=== PATIENT | female | born 1990 | race Two or more races ===

== ENCOUNTER 2021-09-05 14:39 | Outpatient (REF) | payer OTHER, SELFPAY ==
[2021-09-05 14:59] LABS: MANUAL DIFF FLAG NO
[2021-09-05 15:21] LABS: Basophils Absolute Auto 0.1 X10*3/uL (0.0-0.2); Basophils Percent Auto 0.7 % (0-2); Eosinophils Absolute Auto 0.2 X10*3/uL (0.0-0.4); Eosinophils Percent Auto 2.2 % (0-4); Hematocrit 35.2 % (37.0-47.0); Imm Gran Abs Auto 0.02 X10*3/uL (0.00-0.03); Imm Gran Pct Auto 0.3 % (0.0-0.4); Lymphocytes Absolute Auto 1.9 X10*3/uL (1.2-4.9); Lymphocytes Percent Auto 25.4 % (20-40); Mean Corpuscular HGB Conc 31.3 g/dl (31.0-35.0); Mean Corpuscular Hemoglobin 25.5 pg (27.0-33.0); Mean Corpuscular Volume 81.5 fL (80.0-98.0); Mean Platelet Volume 11.2 fL (9.4-12.3); Monocytes Absolute Auto 0.6 X10*3/uL (0.1-1.2); Monocytes Percent Auto 8.5 % (2-11); Neutrophils Absolute Auto 4.6 x10*3/uL (2.0-8.3); Neutrophils Percent Auto 62.9 % (45-73); Platelet Count 293 X10*3/uL (160-400); Red Blood Count 4.32 X10*6/uL (4.20-5.50); Red Cell Distribution Width 15.2 % (11.0-16.0); White Blood Count 7.3 X10*3/uL (4.8-10.8)
[2021-09-05 15:27] LABS: Anion Gap 11 (12-20); Blood Urea Nitrogen 11 mg/dL (9-16); Calcium 9.5 mg/dL (8.4-10.2); Carbon Dioxide 26 mmol/L (22-29); Chloride 105 mmol/L (96-108); Cholesterol 148 mg/dL; Estimated Glomerular Filt Rate > 60; Glucose Random 105 mg/dL (60-115); Sodium 138 mmol/L (135-145)
== END 2021-09-05 14:40 | disposition home or self-care (01) ==
LOC: HO.LAB 14:39
PROVIDERS: PCP Internal Medicine; Visit Provider Internal Medicine
DX: Z00.00 Encounter for general adult medical examination without abnormal findings (principal); K21.9 Gastro-esophageal reflux disease without esophagitis
CPT/HCPCS: 36415; 80048; 82465; 85025

== ENCOUNTER 2022-08-29 11:46 | Outpatient (REF) | payer OTHER, SELFPAY ==
[2022-08-29 13:34] LABS: MANUAL DIFF FLAG NO
[2022-08-29 13:40] LABS: Basophils Absolute Auto 0.1 X10*3/uL (0.0-0.2); Basophils Percent Auto 0.8 % (0-2); Eosinophils Absolute Auto 0.1 X10*3/uL (0.0-0.4); Eosinophils Percent Auto 1.7 % (0-4); Hemoglobin 11.4 g/dl (12.0-16.0); Imm Gran Abs Auto 0.02 X10*3/uL (0.00-0.03); Imm Gran Pct Auto 0.3 % (0.0-0.4); Lymphocytes Absolute Auto 1.7 X10*3/uL (1.2-4.9); Lymphocytes Percent Auto 28.3 % (20-40); Mean Corpuscular HGB Conc 31.7 g/dl (31.0-35.0); Mean Corpuscular Volume 82.2 fL (80.0-98.0); Mean Platelet Volume 12.3 fL (9.4-12.3); Monocytes Absolute Auto 0.6 X10*3/uL (0.1-1.2); Monocytes Percent Auto 10.6 % (2-11); Neutrophils Absolute Auto 3.5 x10*3/uL (2.0-8.3); Neutrophils Percent Auto 58.3 % (45-73); Platelet Count 284 X10*3/uL (160-400); Red Blood Count 4.38 X10*6/uL (4.20-5.50); Red Cell Distribution Width 15.3 % (11.0-16.0); White Blood Count 6.1 X10*3/uL (4.8-10.8)
[2022-08-29 14:01] LABS: Anion Gap 11 (12-20); Blood Urea Nitrogen 8 mg/dL (9-16); Calcium 9.7 mg/dL (8.4-10.2); Carbon Dioxide 27 mmol/L (22-29); Chloride 105 mmol/L (96-108); Cholesterol 140 mg/dL; Estimated Glomerular Filt Rate > 60; Glucose Random 89 mg/dL (60-115); Iron 45 mcg/dL (30-160); Percent Iron Saturation 11 % (15-50); Potassium 4.3 mmol/L (3.3-5.1); Sodium 139 mmol/L (135-145); Total Iron Binding Capacity 404 mcg/dL (228-428); Unsaturated Iron Binding 359 ug/dL
== END 2022-08-29 11:47 | disposition home or self-care (01) ==
LOC: HO.10HDL 11:46
PROVIDERS: Visit Provider Internal Medicine
DX: Z00.00 Encounter for general adult medical examination without abnormal findings (principal)
CPT/HCPCS: 36415; 80048; 82465; 83540; 85025

== ENCOUNTER 2023-01-01 09:31 | Outpatient (REF) | payer OTHER, SELFPAY ==
[2023-01-01 13:59] LABS: CT PCR NOT DETECTED (Not Detect.); NG PCR NOT DETECTED (Not Detect.)
[2023-01-02 10:36] LABS: BV Int Neg Control Negative (Negative); BV Int Pos Control Positive (Positive)
[2023-01-06 06:04] LABS: HPV mRNA E6/E7 rflx Not Detected (Not Detected)
== END 2023-01-01 09:32 | disposition home or self-care (01) ==
LOC: HO.LNP 09:31
PROVIDERS: PCP Internal Medicine; Visit Provider Advanced Practice Midwife
DX: Z30.432 Encounter for removal of intrauterine contraceptive device (principal)
CPT/HCPCS: 0353U; 58301; 87480; 87510; 87624; 87660; 88142

== ENCOUNTER 2023-08-17 13:26 | Outpatient (REF) | payer OTHER, SELFPAY ==
[2023-08-18 13:10] LABS: CT PCR NOT DETECTED (Not Detect.); NG PCR NOT DETECTED (Not Detect.)
[2023-08-18 13:32] LABS: BV Int Neg Control Negative (Negative); BV Int Pos Control Positive (Positive)
== END 2023-08-17 13:27 | disposition home or self-care (01) ==
LOC: HO.LNP 13:26
PROVIDERS: PCP Internal Medicine; Visit Provider Advanced Practice Midwife
DX: O20.9 Hemorrhage in early pregnancy, unspecified (principal)
CPT/HCPCS: 0353U; 87480; 87510; 87660; 99212

== ENCOUNTER 2023-08-17 13:26 | Outpatient (AMB) | payer OTHER, SELFPAY ==
--- NOTE | 2023-08-17 13:28 | MHC.OFFVIS ---
Intake Vital Signs 08/17/23 13:39 Height 5 ft 2 in Weight 160 lb BMI 29.3 BP 118/60 Intake Visit Reasons: Consult Intake Note: The patient agreed to use of a medical sales associate during this encounter. Scribed for DEBBIE Miranda by Kaylin Pettit medical sales associate, on 08/17/2023 at 1:45 pm EST Neurology Physician Assistant Required: No Information Interpreted: non-clinical & clinical Accompanied by: Spouse Allergies No Known Allergies Allergy (Verified 08/17/23 13:40) Patient : Yes HPI HPI Comments History of Present Illness Details She presents for missed menses. LMP?06/20/23.? Her menses are typically regular and monthly, had IUD removed in December. Took home HCG test, positive. This is her 3rd , 2 older girls at home. She is happy about the , planned. Taking PNV. Reports spotting last week after intimacy. Denies any pain. Denies any significant medical hx. Denies any previous complications. She is accompanied by her , Renato. [facility] Medical History Cervical cancer screening Social History Patient : Yes Female Reproductive History Menstrual Age of Menarche: 10 Review of Systems Const All systems reviewed & are unremarkable except as noted in HPI and below Physical Exam Vital Signs: Last Vital Signs BP 118/60 08/17/23 13:39 BMI result Body Mass Index 29.3 Const General: cooperative, no acute distress, well developed and alert External Female Exam: normal external appearance Speculum Exam - Vagina: normal appearance of the vagina Speculum Exam - Cervix: normal appearance of the cervix Bimanual exam- vagina & uterus: normal bimanual exam, uterine size normal, uterine shape normal and non-tender Bimanual Exam- Adnexa, other: normal adnexae and no masses Assessment & Plan Assessment & Plan (1) Missed menses: Code(s): N92.6 - Irregular menstruation, unspecified Plan: Urine HCG today, positive. Discussed EDC pending OB US. US ordered today.? Continue PNV. Stay well hydrated and eat small frequent healthy meals. Counseled on delivery and OB US at [facility]. Reviewed ectopic warnings and when to call for further evaluation. Encouraged patient to sign up for patient portal. Next appointment TBD pending US. She will contact the office with any questions or concerns. (2) Early stage of : Code(s): Z34.90 - Encounter for supervision of normal , unspecified, unspecified trimester (3) Bleeding in early : Code(s): O20.9 - Hemorrhage in early , unspecified Orders: Orders CT NG by PCR Today Z34.90 - Encounter for supervision of normal , unspecified, unspecified trimester Bacterial Vaginosis Panel Today Z34.90 - Encounter for supervision of normal , unspecified, unspecified trimester US OB limited Today N93.0 - Postcoital and contact bleeding, Z34.90 - Encounter for supervision of normal , unspecified, unspecified trimester Coding Level of Care Code Est Pt Level 4 (66265) Diagnoses Missed menses N92.6 Early stage of Z34.90 Bleeding in early O20.9
[2023-08-17 13:39] VITALS: BP 118/60; BMI 29.3
== END 2023-08-17 14:43 | disposition home or self-care (01) ==
PROVIDERS: PCP Internal Medicine; Visit Provider Advanced Practice Midwife
DX: N92.6 Irregular menstruation, unspecified (principal)
CPT/HCPCS: 99214

== ENCOUNTER 2023-08-28 15:10 | Outpatient (REF) | payer OTHER, SELFPAY ==
--- NOTE | ~2023-08-28 | US_ITS ---
EXAMINATION: US OBSTETRICAL ULTRASOUND CLINICAL INFORMATION: Encounter for supervision of normal Early , postcoital bleeding COMPARISON: None available. LMP: 06/20/2023. Gestational age by maternal dates is 9 weeks 6 days. Estimated date of delivery by maternal dates is 03/26/2024. TECHNIQUE: Transabdominal and transvaginal scanning were performed. FINDINGS: There is a single intrauterine gestational sac with visible yolk sac, embryo/fetus with movement and cardiac activity. There is no significant subchorionic hemorrhage or hematoma. HR: 192 beats per minute. CRL (crown rump length): 3.4 cm (10 weeks 3 days +/- 4 days). JOSH (estimated date of delivery): 03/22/2024 +/- 4 days. MATERNAL ADNEXA: The right maternal ovary measures 4.8 x 4.3 x 2.5 cm. A 4.2 x 2.9 x 2.3 cm simple cyst is seen in the right ovary. This is likely a benign functional cyst. The left maternal ovary measures 3.6 x 2.1 x 2.1 cm. The left ovary is normal in appearance. There is no free fluid within the cul-de-sac. US/US OB <= 14 weeks fetus IMPRESSION: 1. Single intrauterine gestation with ultrasound gestational age of 10 weeks 3 days +/- 4 days. 2. Estimated date of delivery is 03/22/2024 +/- 4 days. 3. heart rate is 192 bpm. Upper limits of normal is usually 170 bpm at the ninth week of gestation. After the ninth week of gestation, there is a gradual reduction in the heart rate that reaches a mean value of 150 bpm in the 13th week of gestation. 4. 4.2 cm simple cyst in the right ovary is likely a functional cyst.
== END 2023-08-28 15:11 | disposition home or self-care (01) ==
LOC: HO.HMGCX 15:10
PROVIDERS: PCP Internal Medicine; Visit Provider Advanced Practice Midwife
DX: Z34.91 Encounter for supervision of normal pregnancy, unspecified, first trimester (principal); Z3A.09 9 weeks gestation of pregnancy
CPT/HCPCS: 76801

== ENCOUNTER 2023-09-13 13:21 | Outpatient (AMB) | payer OTHER, SELFPAY ==
[2023-09-13 13:23] VITALS: BP 114/66; BMI 29.8
--- NOTE | 2023-09-13 13:23 | MHC.OFFVIS ---
Intake Vital Signs 09/13/23 13:23 Height 5 ft 2 in Weight 163 lb BMI 29.8 BP 114/66 Intake Visit Reasons: US follow up Director Reactor Projects: Director Reactor Projects Present Allergies No Known Allergies Allergy (Verified 09/13/23 13:23) Is last menstrual period known: Yes HPI US follow up HPI Details Patient is here today for her test results of her ultrasound for dating. She feels well eating without difficulty, taking her vitamins. She denies any vaginal bleeding. COUNTS INCLUDE 234 BEDS AT THE [facility] Medical History Cervical cancer screening Female Reproductive History Menstrual Age of Menarche: 10 Review of Systems ENT Reports no additional complaints Neuro Reports no additional complaints Psych Reports no additional complaints Endo Reports no additional complaints Physical Exam Vital Signs: Last Vital Signs BP 114/66 09/13/23 13:23 BMI result Body Mass Index 29.8 Results Reviewed Results Reviewed: [facility] [address] [place] [address] [place] [id number] Ultrasound Report Signed Patient: Brittni Davidson MR#: [id number] : 1990 Acct:[id number] Age/Sex: 33 / F ADM Date: 08/28/23 Loc: HO.HMGCX Attending Dr: Farnaz Barton CNM Ordering Physician: Farnaz Barton CNM Date of Service: 08/28/23 Procedure(s): US OB <= 14 weeks fetus Accession Number(s): [id number] cc: Liang Rodriguez MD; Farnaz Barton CNM~ EXAMINATION: US OBSTETRICAL ULTRASOUND CLINICAL INFORMATION: Encounter for supervision of normal Early , postcoital bleeding COMPARISON: None available. LMP: 06/20/2023. Gestational age by maternal dates is 9 weeks 6 days. Estimated date of delivery by maternal dates is 03/26/2024. TECHNIQUE: Transabdominal and transvaginal scanning were performed. FINDINGS: There is a single intrauterine gestational sac with visible yolk sac, embryo/fetus with movement and cardiac activity. There is no significant subchorionic hemorrhage or hematoma. HR: 192 beats per minute. CRL (crown rump length): 3.4 cm (10 weeks 3 days +/- 4 days). JOSH (estimated date of delivery): 03/22/2024 +/- 4 days. MATERNAL ADNEXA: The right maternal ovary measures 4.8 x 4.3 x 2.5 cm. A 4.2 x 2.9 x 2.3 cm simple cyst is seen in the right ovary. This is likely a benign functional cyst. The left maternal ovary measures 3.6 x 2.1 x 2.1 cm. The left ovary is normal in appearance. There is no free fluid within the cul-de-sac. US/US OB <= 14 weeks fetus IMPRESSION: 1. Single intrauterine gestation with ultrasound gestational age of 10 weeks 3 days +/- 4 days. 2. Estimated date of delivery is 03/22/2024 +/- 4 days. 3. heart rate is 192 bpm. Upper limits of normal is usually 170 bpm at the ninth week of gestation. After the ninth week of gestation, there is a gradual reduction in the heart rate that reaches a mean value of 150 bpm in the 13th week of gestation. 4. 4.2 cm simple cyst in the right ovary is likely a functional cyst. Dictated By: May Resendez MD Assessment & Plan Assessment & Plan (1) Encounter to discuss test results: Code(s): Z71.2 - Person consulting for explanation of examination or test findings Plan: Discussed ultrasound findings with the heart rate elevated to 192. Discussed variables of the heart rate in early gestation. Plan ultrasound follow-up to confirm viability. Return to the office after test results. Orders: Orders US OB follow up Today O36.8390 - Maternal care for abnormalities of the heart rate or rhythm, unspecified trimester, not applicable or unspecified Coding Level of Care Code Est Pt Level 3 (92694) Diagnoses Encounter to discuss test results Z71.2
== END 2023-09-13 13:47 | disposition home or self-care (01) ==
LOC: HO.HWS 13:21
PROVIDERS: PCP Internal Medicine; Visit Provider Advanced Practice Midwife
DX: Z71.2 Person consulting for explanation of examination or test findings (principal)
CPT/HCPCS: 99213

== ENCOUNTER → 2023-09-13 13:21 | Outpatient (BNVA) | payer OTHER, SELFPAY | PROVIDERS: PCP Internal Medicine; Visit Provider Advanced Practice Midwife | DX: O36.8310 Maternal care for abnormalities of the fetal heart rate or rhythm, first trimester, not applicable or unspecified (principal); O26.891 Other specified pregnancy related conditions, first trimester; N93.0 Postcoital and contact bleeding; O34.81 Maternal care for other abnormalities of pelvic organs, first trimester; N83.291 Other ovarian cyst, right side; Z3A.10 10 weeks gestation of pregnancy; Z71.2 Person consulting for explanation of examination or test findings | CPT/HCPCS: 99212 ==

== ENCOUNTER 2023-09-13 13:59 | Outpatient (REF) | payer OTHER, SELFPAY ==
--- NOTE | ~2023-09-13 | US_ITS ---
EXAMINATION: US OBSTETRICAL ULTRASOUND CLINICAL INFORMATION: Maternal care for abnormalities of the heart rate were rhythm COMPARISON: Ultrasound 08/28/2023 LMP: 06/20/2023. Gestational age by maternal dates is 12 weeks 1 day. Estimated date of delivery by maternal dates is 03/26/2024. TECHNIQUE: Transabdominal scanning was performed. FINDINGS: There is a single intrauterine gestational sac with an fetus demonstrating movement and cardiac activity. There is no significant subchorionic hemorrhage or hematoma. HR: 176 beats per minute. CRL (crown rump length): 6.25 cm (12 weeks 5 days +/- 4 days). JOSH (estimated date of delivery): 03/22/2024 +/- 4 days. MATERNAL ADNEXA: The ovaries are not well seen There is no significant maternal adnexal mass. No maternal pelvic ascites. US/US OB <= 14 weeks fetus IMPRESSION: 1. Single intrauterine gestation with ultrasound gestational age of 12 weeks 5 days +/- 4 days. 2. Estimated date of delivery is 03/22/2024 +/- 4 days. 3. No maternal adnexal mass or pelvic ascites. 4. Interval decrease in heart rate.
== END 2023-09-13 14:00 | disposition home or self-care (01) ==
LOC: HO.US 13:59
PROVIDERS: PCP Internal Medicine; Visit Provider Advanced Practice Midwife
DX: O36.8390 Maternal care for abnormalities of the fetal heart rate or rhythm, unspecified trimester, not applicable or unspecified (principal)
CPT/HCPCS: 76801

== ENCOUNTER 2023-10-01 13:54 | Outpatient (AMB) | payer OTHER, SELFPAY ==
[2023-10-01 13:59] VITALS: BMI 29.7
--- NOTE | 2023-10-01 13:59 | MHC.OFFVISPN ---
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 Maternal Grandmother Diabetes mellitus Maternal Grandfather HTN (hypertension) Paternal Grandfather ETOH abuse Social History (Updated 10/01/23 @ 14:19 by Sofy Menjivar) Household Members: Significant Other and Children Both parents involved: Yes Caregiver staying overnight: No Housing: House Are you a primary career services representative to a significant other at home: No Do you presently have visiting nurse or other home services: No 75 years or older and lives alone: No Alcohol intake: never Patient Tobacco Use Status: Never used Tobacco Agree to transfusion: Yes service: No Current occupational status: employed 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 Current occupational exposures/hazards: No Cognitive needs: No Hearing needs: No Vision needs: No Female Reproductive History Menstrual Age of Menarche: 10 Duration of menses: 3-5 days Date of last menstrual period: 06/20/23 control method: progestin IUCD Total pregnancies: 3 Full term: 2 Premature: 0 Number of Living Children: 2 Ab induced: 0 Ab spontaneous: 0 Ectopics: 0 Multiple births: 0 Date of last pap smear: 01/03/23 History of abnormal pap smear: No History of STI: No History History 3 Elective abortions 0 Para 2 Spontaneous abortions 0 Hx # Term Pregnancies 2 Ectopic pregnancies 0 Hx # Pregnancies 0 Multiple births 0 History Other: HTN with first Maternal grandmother diabetes Past Pregnancies Del. Date GA/Weeks Outcome Route Wt Inf Gender Labor Arlyn Anesthesia Location Provider Complicate 01/25/10 40 live - full term 6 lb 3 oz Female none [facility] [place] induced hyper- gestational hypertension 02/02/12 39 live - full term 6 lb 1 oz Female none none Education First Trimester Education Checklist Plans/Education - by Trimester Counseled: Yes HIV and other routine tests: discussed Infectious disease exposure: chicken pox immunity discussed and hepatitis risk discussed Influenza vaccine: discussed Nutrition and weight gain counseling: special diet: discussed Sexual activity: discussed Exercise: discussed Tobacco use: No Alcohol use: No Substance use: No Environmental/home/work hazards: discussed Domestic violence: discussed Travel: discussed Seatbelt use: discussed Toxoplasmosis precautions (cats/raw meat): discussed Risk factors identified by history: discussed danger signs: Yes education packet: vitamins and iron, diet and weight gain, fish and mercury intake, listeriosis prevention, caffeine use, exercise and activity, sexual activity, x-ray exposure, medication use, toxoplasmosis precautions, sauna/hot tub use and dental care Mental health: discussed Anticipated course of care: discussed Indications for ultrasound: discussed Health center information: visit schedule reviewed, coverage 24 hours a day and signs of miscarriage reviewed Questionnaire History History : 3 Visit JOSH Calculator Estimated Delivery Date Method Current WG Current Estimate 03/26/24 LMP (Certain) 14w 5d Other Estimates 03/22/24 Ultrasound #1 15w 2d Expected Delivery Route/Plan Specific Issues/Plans FH of diabetes (maternal grandmother)--early glucose ordered H/O elevated BPs with first , unsure of diagnosis--will order PEC labs for baseline OB Visit Log Initial Weight: 155 lb Date <del>?</del> EGA Weight Gest Week Fundal Ht Present FHR move Efface % Edema BP PrePreg We Weight GTT <del>?</del> Glucose LV Protein Blood Type 10/01/23 <del>?</del> 14w 5d 162 lb 6 oz (+7 lb 6 oz) 162 lb 6 oz <del>?</del> Notes Visit Date: 10/01/23 Last Updated by: Sofy Menjivar Brittni is a pleasant 33 year old 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 LMP 06/20/23 (certain) with JOSH 03/26/24 and GA today of 14w5d. US on 08/28/23 at 10w3d and JOSH 03/22/24. , both [place] [facility] [place] both born at [place]. Pt reports she had elevated BP with her first and was admitted to hospital. Pt is unsure if she had PEC, but baseline PEC labs were ordered. FH as well for maternal grandmother with diabetes. Early glucose was added to labs. Order was placed for FAS in 5 weeks and pt advised this is done at [facility] [place] and she will receive a call re: appt date/time. Brittni is taking PNV. BMI today 29.7. FOB is Renato and he is also the FOB of her first 2 children. This was planned and the family is happy and excited. Pt was given the folder. We discussed danger signs and how to reach the MD plastic injection mold maker 07/05. Pt is aware she will deliver at [facility] [place] and have US there as well. Of mention was that SHIRA has a brother with autism. First trimester education was reviewed. Pt will schedule her OB PE for next week. All questions were answered to the best of my ability. Pt verbalizes understanding and agrees with plan. Initial Infection History & Risk Profile History of STDs: No HIV risk evaluation: low risk Hepatitis B risk evaluation: low risk Patient or partner has history of Genital Herpes: No Varicella/chicken pox status: previous disease Genetic Screening & General Magistrate Genetic Screening/Teratology Counseling - Includes patient, baby's father, or anyone in either family with: 1. Patient's age 35 years or older as of estimated date of delivery: No 2. Thalassemia (Stateless, Panamanian, Mediterranean, or Background); MCV less than 80: No 3. Neural Tube Defect (Meningomyelocele, Spina Bifida, or Anencephaly): No 4. Congenital Heart Defect: No 5. Down Syndrome: No 6. Manolo-Sachs (Ashkenazi Catholic, Cajun, Yoruba Citizen Of [place]): No 7. Sue Disease (Ashkenazi Catholic): No 8. Familial Dysautonomia (Ashkenazi Catholic): No 9. Sickle Cell Disease or Trait (): No 10. Hemophilia or other blood disorders: No 11. Muscular Dystrophy: No 12. Cystic Fibrosis: No 13. [place]'s Chorea: No 14. Intellectual disability/Autism: Yes 15. Other inherited genetic or chromosomal disorder: No 16. Maternal Metabolic Disorder (EG,TYPE 1 Diabetes, PKU): No 17. Patient or baby's father had a child with defects not listed above: No 18. Recurrent loss or a stillbirth: No 19. Medications (including supplements, vitamins, herbs or otc drugs)/illicit/recreational drugs/alcohol since last menstrual period: No 20. Any other: No Infection History 1. Live with someone with TB or exposed to TB: No 2. Rash or viral illness since last menstrual period: No 3. Hepatitis B,C: No Other (see comments) Source: [employer] Coding Level of Care Code Established Pt Jaqui Patient Type Established History Problem Focused Medical Decision Making Low Complexity Diagnoses Supervision of normal intrauterine in multigravida in second trimester Z34.82 Time Spent (min) 70 Assessment & Plan Assessment & Plan (1) Supervision of normal intrauterine in multigravida in second trimester: Code(s): Z34.82 - Encounter for supervision of other normal , second trimester Category: Medical Orders: Orders Complete Blood Count no Diff Today Z32.01 - Encounter for test, result positive, Z34.82 - Encounter for supervision of other normal , second trimester Hepatitis B Surface Antigen Today Z32.01 - Encounter for test, result positive, Z34.82 - Encounter for supervision of other normal , second trimester Hepatitis C Antibody Today Z32.01 - Encounter for test, result positive, Z34.82 - Encounter for supervision of other normal , second trimester Urine Culture Today Z32.01 - Encounter for test, result positive, Z34.82 - Encounter for supervision of other normal , second trimester Screen Today Z32.01 - Encounter for test, result positive, Z34.82 - Encounter for supervision of other normal , second trimester Rubella IgG Antibody Today Z32.01 - Encounter for test, result positive, Z34.82 - Encounter for supervision of other normal , second trimester CF Carrier Screen Today Z32.01 - Encounter for test, result positive, Z34.82 - Encounter for supervision of other normal , second trimester US OB /maternal detail Today Z32.01 - Encounter for test, result positive, Z34.82 - Encounter for supervision of other normal , second trimester Creatinine Today Z34.82 - Encounter for supervision of other normal , second trimester Blood Urea Nitrogen Today Z34.82 - Encounter for supervision of other normal , second trimester Aspartate Amino Transferase Today Z34.82 - Encounter for supervision of other normal , second trimester Alanine Aminotransferase Today Z34.82 - Encounter for supervision of other normal , second trimester Protein Creatinine Ratio, Ur Today Z34.82 - Encounter for supervision of other normal , second trimester Syphilis Screen Today Z32.01 - Encounter for test, result positive, Z34.82 - Encounter for supervision of other normal , second trimester Varicella IgG Antibody Today Z32.01 - Encounter for test, result positive, Z34.82 - Encounter for supervision of other normal , second trimester HIV Ab/Ag Today Z32.01 - Encounter for test, result positive, Z34.82 - Encounter for supervision of other normal , second trimester Drug Screen Urine Today Z32.01 - Encounter for test, result positive, Z34.82 - Encounter for supervision of other normal , second trimester Glucose 1 Hour PP 50gm Dose Today Z34.82 - Encounter for supervision of other normal , second trimester Uric Acid Today Z34.82 - Encounter for supervision of other normal , second trimester
== END 2023-10-01 15:09 | disposition home or self-care (01) ==
LOC: HO.HWS 13:54
PROVIDERS: PCP Internal Medicine; Visit Provider Advanced Practice Midwife
DX: Z34.82 Encounter for supervision of other normal pregnancy, second trimester (principal)
CPT/HCPCS: 25942

== ENCOUNTER → 2023-10-01 13:54 | Outpatient (BNVA) | payer OTHER, SELFPAY | PROVIDERS: PCP Internal Medicine; Visit Provider Advanced Practice Midwife | DX: Z34.81 Encounter for supervision of other normal pregnancy, first trimester (principal); Z3A.14 14 weeks gestation of pregnancy | CPT/HCPCS: 99212 ==

== ENCOUNTER 2023-10-10 14:53 | Outpatient (REF) | payer OTHER, SELFPAY ==
[2023-10-10 15:26] LABS: Hematocrit 36.9 % (37.0-47.0); Hemoglobin 12.4 g/dl (12.0-16.0); Mean Corpuscular HGB Conc 33.6 g/dl (31.0-35.0); Mean Corpuscular Hemoglobin 28.6 pg (27.0-33.0); Mean Platelet Volume 11.9 fL (9.4-12.3); Platelet Count 218 X10*3/uL (160-400); Red Blood Count 4.34 X10*6/uL (4.20-5.50); Red Cell Distribution Width 13.9 % (11.0-16.0); White Blood Count 7.8 X10*3/uL (4.8-10.8)
[2023-10-10 16:24] LABS: Alanine Aminotransferase 20 U/L (0-31); Aspartate Amino Transferase 23 U/L (5-31); Blood Urea Nitrogen 6 mg/dL (9-16); Estimated Glomerular Filt Rate > 60; Glucose 1 Hour PP 50gm Dose 99 mg/dL (60-140); Uric Acid 3.7 mg/dL (2.4-5.7)
[2023-10-10 18:00] LABS: Amphetamine Screen Urine Not Detected (Not Detect); Barbiturates, Urine Not Detected (Not Detect); Benzodiazepines Screen Urine Not Detected (Not Detect); Cannabinoid Screen Urine Not Detected (Not Detect); Cocaine Screen Urine Not Detected (Not Detect); Fentanyl, urine Not Detected (Not Detect); Opiate Screen Urine Not Detected (Not Detect); Phencyclidine Screen Urine Not Detected (Not Detect)
[2023-10-10 18:06] LABS: Creatinine Urine 113.22 mg/dL; Protein/Creatinine Ratio, Ur 0.08 (<0.2); Total Protein Urine Random 9 mg/dL (<12)
[2023-10-11 07:55] LABS: Syphilis Screen Nonreactive (Nonreactive)
[2023-10-11 08:04] LABS: HBsAGNum1 0.39 S/CO (0.00-0.99); HIV AB/AG Nonreactive (Nonreactive); HIV Num 1 0.07 S/CO (0.00-0.99); Hepatitis B Surface Antigen Negative (Negative); ~HepC Num1 0.14 S/CO (0.00-0.79); ~Hepatitis C Antibody Nonreactive (Nonreactive)
[2023-10-11 16:13] LABS: Rubella IgG Antibody 4.68 Index
[2023-10-22 17:38] LABS: CF Ethnicity NG; Cystic Fibrosis NEGATIVE (NEGATIVE)
== END 2023-10-10 14:54 | disposition home or self-care (01) ==
LOC: HO.LAB 14:53
PROVIDERS: PCP Internal Medicine; Visit Provider Advanced Practice Midwife
DX: Z34.82 Encounter for supervision of other normal pregnancy, second trimester (principal); Z67.40 Type O blood, Rh positive
CPT/HCPCS: 80307; 81220; 82565; 82570; 82950; 84156; 84450; 84460; 84520; 84550; 85027; 86762; 86780; 86787; 86803; 86850; 86900; 87086; 87340; 87389

== ENCOUNTER 2023-10-16 11:30 | Outpatient (REF) | payer BC, SELFPAY ==
[2023-10-17 15:32] LABS: BV Int Neg Control Negative (Negative); BV Int Pos Control Positive (Positive)
[2023-10-17 18:00] LABS: CT PCR NOT DETECTED (Not Detect.); NG PCR NOT DETECTED (Not Detect.)
== END 2023-10-16 11:31 | disposition home or self-care (01) ==
LOC: HO.LAB 11:30
PROVIDERS: PCP Internal Medicine; Visit Provider Advanced Practice Midwife
DX: Z34.82 Encounter for supervision of other normal pregnancy, second trimester (principal); Z3A.16 16 weeks gestation of pregnancy; Z20.2 Contact with and (suspected) exposure to infections with a predominantly sexual mode of transmission
CPT/HCPCS: 0353U; 81003; 87480; 87510; 87660; 99212

== ENCOUNTER 2023-10-16 11:30 | Outpatient (AMB) | payer BC, SELFPAY ==
[2023-10-16 11:29] VITALS: BP 106/68; BMI 30.2
--- NOTE | 2023-10-16 11:29 | A.OFFVISPN_ITS ---
Intake Vital Signs 10/16/23 11:29 Height 5 ft 2 in Weight 165 lb BMI 30.2 BP 106/68 Intake Visit Reasons: OB PE Pulp Piler Required: No Information Interpreted: clinical only Flight Communications Officer: Flight Communications Officer Present Allergies No Known Allergies Allergy (Verified 10/16/23 11:32) Medication List - Last Reconciled 10/16/23 by Gaby Lopez CNM PNV,calcium 59-amft-nyaom acid 27 mg iron- 1 mg ( Vitamins Plus Low Iron) 1 tab PO DAILY PFSH Medical History Cervical cancer screening Family History Father HTN (hypertension) Blood cholesterol increased compared with prior measurement Mother No problems noted. 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 Date GA/Weeks Outcome Route Wt Inf Gender Labor Arlyn Anesthesia Location Provider Complicate 01/25/10 40 live - full term 6 lb 3 oz Female none C pre-eclampsia induced hyper- gestational hypertension 02/02/12 39 live - full term 6 lb 1 oz Female none none Questionnaire Strong Depression Strong Depression Scale I have been able to laugh and see the funny side of things: As much as I always could I have looked forward with enjoyment to things: As much as I ever did I have blamed myself unnecessarily when things went wrong: No, never I have been anxious or worried for no reason: No, not at all I have felt scared of panicky for no very good reason at all: No, not at all Things have been getting on top of me: No, I have been coping as well as ever I have been so unhappy that I have had difficulty sleeping: No, not at all I have felt sad or miserable: No, not at all I have been so unhappy that I have been crying: No, never The thought of harming myself has occurred to me: Never 0 PHQ Assessment Billing PHQ Assessment Tool: PHQ Assessment 05666 Visit JOSH Calculator Estimated Delivery Date Method Current WG Current Estimate 03/26/24 LMP (Certain) 16w 6d Other Estimates 03/22/24 Ultrasound #1 17w 3d Expected Delivery Route/Plan Specific Issues/Plans FH of diabetes (maternal grandmother)--early glucose ordered H/O elevated BPs with first , unsure of diagnosis--will order PEC labs for baseline OB Problem List: 33 yr. old ? ? G3 ?P2 ? ? ?LMP: 06/20/23 EDC: 03/26/24 ?by certain dates? ? ?Blood type:O pos Problem List: 1. Testing: Panorama/and or First Tri screen: ? ?risk NT scan:09/21/23 nl AFP: FAS: Glucose: early ? 28 wk glucose: ? CBC 1st Tri: 12.4/36.9/218? 28 wk. CBC: GBS: Pre eclampsia labs: !st tri -wnl Vaccinations: Flu: Covid: Tdap: RSV: Education/Services WIC: CBE: Breast feeding classes: Social Supports/Stressors: Living situation: Supports: Work/school: Transportation: Labor, and Concerns: Labor support: Plan: Feeding Plans: control: OB Visit Log Initial Weight: 155 lb Date -?-?-?-?-?-?-?-?-?-?-?-?- EGA Weight Gest Week Fundal Ht Present FHR move Efface % Edema BP PrePreg We Weight GTT -?-?-?-?-?-?-?-?-?-?-?-?- Glucose LV Protein Blood Type 10/01/23 -?-?-?-?-?-?-?-?-?-?-?-?- 14w 5d 162 lb 6 oz (+7 lb 6 oz) 1 62 lb 6 oz -?-?-?-?-?-?-?-?-?-?-?-?- 10/16/23 -?-?-?-?-?-?-?-?-?-?-?-?- 16w 6d 165 lb (+10 lb) 15 160 106/68 165 l b -?-?-?-?-?-?-?-?-?-?-?-?- Notes Visit Date: 10/16/23 Last Updated by: Gaby Lopez CNM Patient is being seen for her new OB physical down of the [facility]. Review of the chart shows normal lab work that was done at [facility] including baseline preeclampsia labs. The patient had an elevated heart rate at a dating ultrasound so she was sent for a follow-up ultrasound which was within normal limits and she also then had her nuchal translucency ultrasound at [facility] but it was done at the [facility]. She says she went to the lab following, to get the blood work done but review of the chart, and with assistance of RN reveals no filing that can be found of the results of the 1st trimester screening from 09/21/2023. Therefore the following issues have been discussed today I am sending her to the RNs at the [address] [place] [id number] to fill out the paperwork for the AFP lab work which is a screening for neural tube defects and if the 1st trimester screening lab results have not been located or are abnormal she is also to have I panorama done. There is no computer order for the panorama at this time yet. The patient says she is able to go up to the hospital to supervisor opening and picking these forms and then go to the lab. Jordyn is continuing to look for the results of the first-trimester screen. Re of the visit patient has been reassured that everything is okay with the baby's heart rate after having had 2 ultrasounds as above we are still trying to locate the results of the first-trimester screen as they do not appear to be in the chart. I did financial aid counselor her about the possibility of getting AFP screening for neural tube defects she is open to doing what ever is recommended in a . She already has her FA S ultrasound scheduled an ordered. I reviewed that at this point in time we do not have the ability to have this test done down here at the [facility] as there is a form that needs to be filled out by the RNs to accompany paperwork to the lab so she is going to go now to the 501 office and speak with the nurses and have that form filled out and then go to the lab if the results of the 1st trimester screening as above have not yet been located by the time she arrives up there the patient is also to be given put paperwork for a panorama test, as a substitute for the 1st trimester screening. Patient feels she is eating well she is doing well her kids are excited. Her is eager to find out if she is having a boy but she knows that at the very least she will find out at the ultrasound. She does not have any other questions about taking care of herself in this and is fine with delivering at [facility] and coming here for care. Reviewed normal parameters of self-care in and her normal labs thus far with exception of the missing first-trimester screen. Clarification of patient's 1st delivery she does remember having an elevated blood pressure to visit and was recommended to go home and rest and come back again the following Sunday and at that visit her blood pressure was again elevated and she was sent to the birthing center but by then she was already in labor on her own and did not need to be induced and in fact and just at the time she was thinking she might need something to help her for pain it was time for the baby to come so it was a relatively quick labor. Visit Date: 10/01/23 Last Updated by: Sofy Li Otto Brittni is a pleasant 33 year old here for lozenge maker helper visit. LMP 06/20/23 (certain) with JOSH 03/26/24 and GA today of 14w5d. US on 08/28/23 at 10w3d and JOSH 03/22/24. , both girls were born at [facility] and both born at term. Pt reports she had elevated BP with her first and was admitted to hospital. Pt is unsure if she had PEC, but baseline PEC labs were ordered. FH as well for maternal grandmother with diabetes. Early glucose was added to labs. Order was placed for FAS in 5 weeks and pt advised this is done at [facility] and she will receive a call re: appt date/time. Brittni is taking PNV. BMI today 29.7. FOB is Renato and he is also the FOB of her first 2 children. This was planned and the family is happy and excited. Pt was given the folder. We discussed danger signs and how to reach the MD long term care pharmacist 07/05. Pt is aware she will deliver at [facility] and have US there as well. Of mention was that SHIRA has a brother with autism. First trimester education was reviewed. Pt will schedule her OB PE for next week. All questions were answered to the best of my ability. Pt verbalizes understanding and agrees with plan. Initial Infection History & Risk Profile History of STDs: No HIV risk evaluation: low risk Hepatitis B risk evaluation: low risk Patient or partner has history of Genital Herpes: No Varicella/chicken pox status: previous disease Genetic Screening & Title One Kindergarten Teacher Genetic Screening/Teratology Counseling - Includes patient, baby's father, or anyone in either family with: 1. Patient's age 35 years or older as of estimated date of delivery: No 2. Thalassemia (Mauritanian, Slovenian, Mediterranean, or Background); MCV less than 80: No 3. Neural Tube Defect (Meningomyelocele, Spina Bifida, or Anencephaly): No 4. Congenital Heart Defect: No 5. Down Syndrome: No 6. Manolo-Sachs (Ashkenazi Evangelical, Cajun, Swedish Frederick): No 7. Sue Disease (Ashkenazi Evangelical): No 8. Familial Dysautonomia (Ashkenazi Evangelical): No 9. Sickle Cell Disease or Trait (): No 10. Hemophilia or other blood disorders: No 11. Muscular Dystrophy: No 12. Cystic Fibrosis: No 13. Albany's Chorea: No 14. Intellectual disability/Autism: Yes 15. Other inherited genetic or chromosomal disorder: No 16. Maternal Metabolic Disorder (EG,TYPE 1 Diabetes, PKU): No 17. Patient or baby's father had a child with defects not listed above: No 18. Recurrent loss or a stillbirth: No 19. Medications (including supplements, vitamins, herbs or otc drugs)/illicit/recreational drugs/alcohol since last menstrual period: No 20. Any other: No Infection History 1. Live with someone with TB or exposed to TB: No 2. Rash or viral illness since last menstrual period: No 3. Hepatitis B,C: No Other (see comments) Source: [employer] Results AMB Urinalysis, Automated UA Leukoctes 1 Carlos/uL Last Edit by Velia Mendez CMA on 10/16/23 12:10 trace Velia Mendez 10/16/23 12:10 UA Nitrite Negative Last Edit by Velia Mendez CMA on 10/16/23 12:10 UA Urobilinogen 0 mg/dL Last Edit by Velia Mendez CMA on 10/16/23 12:10 UA Protein 0 mg/dL Last Edit by Velia Mendez CMA on 10/16/23 12:10 UA pH 7.5 Last Edit by Velia Mendez CMA on 10/16/23 12:10 UA Blood 0 Corby/uL Last Edit by Velia Mendez CMA on 10/16/23 12:10 UA Specific Pilot 1.015 Last Edit by Velia Mendez CMA on 10/16/23 12: 10 UA Ketone Negative Last Edit by Velia Mendez CMA on 10/16/23 12:10 UA Bilirubin 0 mg/dL Last Edit by Velia Mendez CMA on 10/16/23 12:10 UA Glucose 0 mg/dL Last Edit by Velia Mendez CMA on 10/16/23 12:10 Exam Const Constitutional General: cooperative, healthy appearing, comfortable, no acute distress and well developed Nutritional Appearance: average body habitus and well nourished Constitutional Limitations: no limitations [facility] Head: normocephalic and other Teeth and gingiva: dentition normal and gingiva normal Neck Thyroid: Thyroid normal Chest Breast/axilla inspection: normal inspection of the breasts and Other (nipples sathish well) Breast/axilla palpation: normal palpation of the breasts and normal palpation of the axillae Resp Effort & Inspection: normal respiratory effort Auscultation: clear to auscultation bilaterally Cardio Heart sounds: S1 normal heart sound present and S2 normal heart sound present GI Inspection (GI): normal to inspection General Exam: Yes no CVA tenderness External Female Exam: normal external appearance Speculum exam - vagina: normal appearance of the vagina, normal discharge and other (normal appearance to vaginal secretions) Speculum Exam - Cervix: normal appearance of the cervix Bimanual exam- vagina & uterus: normal bimanual exam, uterine size normal (consistant w dating), consistency normal (consitent w gestational age), uterine mobility normal and uterine shape normal (c/w gestational age) Bimanual Exam- Adnexa, other: normal adnexae, no masses and normal (teaching re kegels done) Pelvic Support: normal (teaching re kegels done) OB/external & speculum: external exam normal Manual OB Exam: other (cervix =long/thick/closed/ and consistent w obstetric history) Results Reviewed Results Reviewed: Laboratory Last Values Urine pH (Auto) 7.5 10/16/23 11:50 Specific Pilot (Auto) 1.015 10/16/23 11:50 Urine Protein (Auto) 0 mg/dL 10/16/23 11:50 Glucose (UA)(Auto) 0 mg/dL 10/16/23 11:50 Urine Ketones (Auto) Negative 10/16/23 11:50 Urine Blood (Auto) 0 Corby/uL 10/16/23 11:50 Urine Nitrite (Auto) Negative 10/16/23 11:50 Urine Bilirubin (Auto) 0 mg/dL 10/16/23 11:50 Urine Urobilinogen (Auto) 0 mg/dL 10/16/23 11:50 Leukocyte Esterase (Auto) 1 Carlos/uL 10/16/23 11:50 Coding Level of Care Code [facility] Diagnoses Supervision of normal intrauterine in multigravida in second trimester Z34.82 Encounter for screening for malformations Z36.3 Assessment & Plan Assessment & Plan (1) Supervision of normal intrauterine in multigravida in second trimester: Code(s): Z34.82 - Encounter for supervision of other normal , second trimester Category: Medical (2) Encounter for screening for malformations: Code(s): Z36.3 - Encounter for screening for malformations Category: Medical Orders: Orders Bacterial Vaginosis Panel Today Z20.2 - Contact with and (suspected) exposure to infections with a predominantly sexual mode of transmission, Z34.82 - Encounter for supervision of other normal , second trimester, Z36.3 - Encounter for screening for malformations AMB Urinalysis Automated Today Z34.82 - Encounter for supervision of other normal , second trimester CT NG by PCR Today Z01.419 - Encounter for gynecological examination (general) (routine) without abnormal findings, Z34.82 - Encounter for supervision of other normal , second trimester, Z36.3 - Encounter for screening for malformations AFP Quad Screen Today Z34.82 - Encounter for supervision of other normal , second trimester, Z36.3 - Encounter for screening for malformations Medications: New aspirin (Adult Aspirin Regimen) 162 mg (2 x 81 mg) PO DAILY 90 tabs 2RF
== END 2023-10-16 12:58 | disposition home or self-care (01) ==
LOC: HO.HWSM 11:30
PROVIDERS: PCP Internal Medicine; Visit Provider Advanced Practice Midwife
DX: Z34.82 Encounter for supervision of other normal pregnancy, second trimester (principal); Z36.3 Encounter for antenatal screening for malformations
CPT/HCPCS: 25942

== ENCOUNTER 2023-10-18 11:23 | Outpatient (REF) | payer BC, SELFPAY | END 2023-10-18 11:24 | disposition home or self-care (01) | LOC: HO.LAB 11:23 | PROVIDERS: PCP Internal Medicine; Visit Provider Advanced Practice Midwife | DX: Z34.82 Encounter for supervision of other normal pregnancy, second trimester (principal); Z36.3 Encounter for antenatal screening for malformations | CPT/HCPCS: 36415; 81511 ==

== ENCOUNTER 2023-11-16 13:56 | Outpatient (AMB) | payer BC, SELFPAY ==
--- NOTE | 2023-11-16 14:14 | MHC.OFFVIS ---
Intake Intake Visit Reasons: JENNIFER Allergies No Known Allergies Allergy (Verified 10/16/23 11:32) PFSH Medical History Cervical cancer screening Family History Father HTN (hypertension) Blood cholesterol increased compared with prior measurement Mother No problems noted. 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
[2023-11-16 14:17] VITALS: BP 100/60; BMI 31.1
--- NOTE | 2023-11-16 14:17 | A.OFFVISPN_ITS ---
Intake Vital Signs 11/16/23 14:17 Height 5 ft 2 in Weight 170 lb BMI 31.1 BP 100/60 Intake Visit Reasons: JENNIFER Crystal Report Developer Required: No Information Interpreted: non-clinical & clinical Accompanied by: Self / Same As Patient Allergies No Known Allergies Allergy (Verified 11/16/23 14:18) Patient : Yes PFSH Medical History Cervical cancer screening Family History Father HTN (hypertension) Blood cholesterol increased compared with prior measurement Mother No problems noted. 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 Date GA/Weeks Outcome Route Wt Inf Gender Labor Arlyn Anesthesia Location Provider Complicate 01/25/10 40 live - full term 6 lb 3 oz Female none [facility] pre-eclampsia induced hyper- gestational hypertension 02/02/12 39 live - full term 6 lb 1 oz Female none none Visit JOSH Calculator Estimated Delivery Date Method Current WG Current Estimate 03/26/24 LMP (Certain) 21w 2d Other Estimates 03/22/24 Ultrasound #1 21w 6d Expected Delivery Route/Plan Specific Issues/Plans FH of diabetes (maternal grandmother)--early glucose ordered H/O elevated BPs with first , unsure of diagnosis--will order PEC labs for baseline OB Problem List: 33 yr. old ? ? G3 ?P2 ? ? ?LMP: 06/20/23 EDC: 03/26/24 ?by certain dates? ? ?Blood type:O pos Problem List: 1. Testing: Panorama/and or First Tri screen: ? ?risk NT scan:09/21/23 nl AFP: Low risk for DS. tri 18, open NTD FAS:nl scan Glucose: early ? 28 wk glucose: ? CBC 1st Tri: 12.4/36.9/218? 28 wk. CBC: GBS: Pre eclampsia labs: 1st tri -wnl Vaccinations: Flu: 06/2023 Covid: 06/2023 Tdap: RSV: Education/Services WIC: not eligible Social Supports/Stressors: Living situation: partner Renato, her daughters, 11 and 13 yrs. 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 control: OB Visit Log Initial Weight: 155 lb Date -?-?-?-?-?-?-?-?-?-?-?-?- EGA Weight Gest Week Fundal Ht Present FHR move Efface % Edema BP PrePreg We Weight GTT -?-?-?-?-?-?-?-?-?-?-?-?- Glucose LV Protein Blood Type 10/01/23 -?-?-?-?-?-?-?-?-?-?-?-?- 14w 5d 162 lb 6 oz (+7 lb 6 oz) 1 62 lb 6 oz -?-?-?-?-?-?-?-?-?-?-?-?- 10/16/23 -?-?-?-?-?-?-?-?-?-?-?-?- 16w 6d 165 lb (+10 lb) 15 160 106/68 165 l b -?-?-?-?-?-?-?-?-?-?-?-?- 11/16/23 -?-?-?-?-?-?-?-?-?-?-?-?- 21w 2d 170 lb (+15 lb) 22 150 active 100/60 170 lb -?-?-?-?-?-?-?-?-?-?-?-?- Notes Visit Date: 11/16/23 Last Updated by: Farnaz Barton CNM Note author: Farnaz Barton CNM. 21.2wk. JENNIFER. Taking PNV, Doing well with no concerns. Good appetite, stays well hydrated. Denies any LOF, VB, abd. pain, she feels like she may be starting to get a urinary tract infection, and also some mild irritation externally. Good FM. She reports having a 3rd girl. Exam completed BV culture obtained, urine sent to lab for culture. Reviewed: FAS nl PTL s/s-LOF/Ctx's/VB, when to seek emergent care. discomforts, self help measures. FMC and when to call for further evaluation. Encouraged a healthy well balanced diet, regular walking/exercise in . Hydrate well, 8-10 glasses of water daily. RTO 4wks. Visit Date: 10/16/23 Last Updated by: Gaby Lopez CNM Patient is being seen for her new OB physical down of the [facility]. Review of the chart shows normal lab work that was done at [facility] including baseline preeclampsia labs. The patient had an elevated heart rate at a dating ultrasound so she was sent for a follow-up ultrasound which was within normal limits and she also then had her nuchal translucency ultrasound at [facility] but it was done at the [facility]. She says she went to the lab following, to get the blood work done but review of the chart, and with assistance of RN reveals no filing that can be found of the results of the 1st trimester screening from 09/21/2023. Therefore the following issues have been discussed today I am sending her to the RNs at the 501 office to fill out the paperwork for the AFP lab work which is a screening for neural tube defects and if the 1st trimester screening lab results have not been located or are abnormal she is also to have I panorama done. There is no computer order for the panorama at this time yet. The patient says she is able to go up to the hospital to turkey picker these forms and then go to the lab. Jordyn is continuing to look for the results of the first-trimester screen. Re of the visit patient has been reassured that everything is okay with the baby's heart rate after having had 2 ultrasounds as above we are still trying to locate the results of the first-trimester screen as they do not appear to be in the chart. I did correctional substance abuse counselor her about the possibility of getting AFP screening for neural tube defects she is open to doing what ever is recommended in a . She already has her FA S ultrasound scheduled an ordered. I reviewed that at this point in time we do not have the ability to have this test done down here at the [facility] as there is a form that needs to be filled out by the RNs to accompany paperwork to the lab so she is going to go now to the 501 office and speak with the nurses and have that form filled out and then go to the lab if the results of the 1st trimester screening as above have not yet been located by the time she arrives up there the patient is also to be given put paperwork for a panorama test, as a substitute for the 1st trimester screening. Patient feels she is eating well she is doing well her kids are excited. Her is eager to find out if she is having a boy but she knows that at the very least she will find out at the ultrasound. She does not have any other questions about taking care of herself in this and is fine with delivering at [facility] and coming here for care. Reviewed normal parameters of self-care in and her normal labs thus far with exception of the missing first-trimester screen. Clarification of patient's 1st delivery she does remember having an elevated blood pressure to visit and was recommended to go home and rest and come back again the following Sunday and at that visit her blood pressure was again elevated and she was sent to the birthing center but by then she was already in labor on her own and did not need to be induced and in fact and just at the time she was thinking she might need something to help her for pain it was time for the baby to come so it was a relatively quick labor. 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 LMP 06/20/23 (certain) with JOSH 03/26/24 and GA today of 14w5d. US on 08/28/23 at 10w3d and JOSH 03/22/24. , both girls were born at [facility] and both born at term. Pt r eports she had elevated BP with her first and was admitted to hospital. Pt is unsure if she had PEC, but baseline PEC labs were ordered. FH as well for maternal grandmother with diabetes. Early glucose was added to labs. Order was placed for FAS in 5 weeks and pt advised [place] done [place] [facility] and she will receive a call re: appt date/time. Brittni is taking PNV. BMI today 29.7. FOB is Renato and he is also the FOB of her first 2 children. This was planned and the family is happy and excited. Pt was given the folder. We discussed danger signs and how to reach the MD orientation and mobility instructor 07/05. Pt is aware she will deliver [place] [facility] and have [place] there as well. Of mention was that SHIRA has a brother with autism. First trimester education was reviewed. Pt will schedule her OB PE for next week. All questions were answered to the best of my ability. Pt verbalizes understanding and agrees with plan. Review of Systems Const All systems reviewed & are unremarkable except as noted in HPI and below Results AMB Urinalysis Dipstick UR Leukocytes Moderate Last Edit by Ursula Oropeza CMA on 11/16/23 14:50 UR Nitrite Negative Last Edit by Ursula Oropeza CMA on 11/16/23 14:50 UR Urobilinogen 12 Last Edit by Ursula Oropeza CMA on 11/16/23 14:50 UR Protein Trace Last Edit by Ursula Orpoeza CMA on 11/16/23 14:50 UR Ph 7.0 Last Edit by Ursula Oropeza CMA on 11/16/23 14:50 UR Blood Negative Last Edit by Ursula Oropeza CMA on 11/16/23 14:50 UR Specific Leslie 1.015 Last Edit by Ursula Oropeza CMA on 11/16/23 14:50 UR Ketone Negative Last Edit by Ursula Oropeza CMA on 11/16/23 14:50 UR Bilirubin Negative Last Edit by Ursula Oropeza CMA on 11/16/23 14:50 UR Glucose Negative Last Edit by Ursula Oropeza CMA on 11/16/23 14:50 Exam Const Constitutional General: cooperative, healthy appearing and no acute distress Orientation/consciousness: patient oriented x3 GI Inspection (GI): normal to inspection Palpation (GI): Soft to palpation and Other GI palpation findings present (Nontender) External Female Exam: normal appearance of the urethra Urethra: normal appearance of the urethra Speculum exam - vagina: normal appearance of the vagina and normal discharge Speculum Exam - Cervix: normal appearance of the cervix Results Reviewed Results Reviewed: Laboratory Last Values Urine pH (Clinic) 7.0 11/16/23 14:48 Specific Leslie (Clinic) 1.015 11/16/23 14:48 Ur Protein (Clinic) Trace 11/16/23 14:48 Ur Ketones (Clinic) Negative 11/16/23 14:48 Urine Blood (Clinic) Negative 11/16/23 14:48 Urine Nitrite Negative 11/16/23 14:48 Urine Bilirubin (Clinic) Negative 11/16/23 14:48 Urobilinogen (Clinic) 12 11/16/23 14:48 Leukocyte Esterase (Clinic) Moderate 11/16/23 14:48 Urine Glucose (Clinic) Negative 11/16/23 14:48 Coding Level of Care Code [place] Assessment & Plan Assessment & Plan Orders: Orders Urine Culture Today N39.0 - Urinary tract infection, site not specified AMB Urinalysis Dipstick Today N39.0 - Urinary tract infection, site not specified Bacterial Vaginosis Panel Today N76.0 - Acute vaginitis
== END 2023-11-16 15:00 | disposition home or self-care (01) ==
LOC: HO.HWS 13:56
PROVIDERS: PCP Internal Medicine; Visit Provider Advanced Practice Midwife
DX: Z34.90 Encounter for supervision of normal pregnancy, unspecified, unspecified trimester (principal)
CPT/HCPCS: 25942

== ENCOUNTER 2023-11-16 13:56 | Outpatient (REF) | payer BC, SELFPAY ==
[2023-11-17 11:44] LABS: BV Int Neg Control Negative (Negative); BV Int Pos Control Positive (Positive)
== END 2023-11-16 13:57 | disposition home or self-care (01) ==
LOC: HO.LNP 13:56
PROVIDERS: PCP Internal Medicine; Visit Provider Advanced Practice Midwife
DX: O26.892 Other specified pregnancy related conditions, second trimester (principal); N39.0 Urinary tract infection, site not specified; N76.0 Acute vaginitis; Z3A.21 21 weeks gestation of pregnancy
CPT/HCPCS: 81002; 87086; 87480; 87510; 87660; 99212

== ENCOUNTER 2023-12-14 11:04 | Outpatient (AMB) | payer BC, SELFPAY ==
[2023-12-14 11:04] VITALS: BP 122/80; BMI 31.1
--- NOTE | 2023-12-14 11:04 | A.OFFVISPN_ITS ---
Intake Vital Signs 12/14/23 11:04 Height 5 ft 2 in Weight 170 lb BMI 31.1 BP 122/80 Intake Visit Reasons: JENNIFER Teller Head Required: No Information Interpreted: clinical only Community Program Assistant: Community Program Assistant Present Allergies No Known Allergies Allergy (Verified 12/14/23 11:05) Medication List - Last Reconciled 12/14/23 by Gaby Lopez CNM PNV,calcium 60-xpiz-etbgj acid 27 mg iron- 1 mg ( Vitamins Plus Low Iron) 1 tab PO DAILY Patient : Yes Do you need a note to return to daycare/school/sports/work: No PFSH Medical History Cervical cancer screening Family History Father HTN (hypertension) Blood cholesterol increased compared with prior measurement Mother No problems noted. 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 Date GA/Weeks Outcome Route Wt Inf Gender Labor Arlyn Anesthesia Location Provider Complicate 01/25/10 40 live - full term 6 lb 3 oz Female none [facility] pre-eclampsia induced hyper- gestational hypertension 02/02/12 39 live - full term 6 lb 1 oz Female none none Visit JOSH Calculator Estimated Delivery Date Method Current WG Current Estimate 03/26/24 LMP (Certain) 25w 2d Other Estimates 03/22/24 Ultrasound #1 25w 6d Expected Delivery Route/Plan Specific Issues/Plans FH of diabetes (maternal grandmother)--early glucose ordered H/O elevated BPs with first , unsure of diagnosis--will order PEC labs for baseline OB Problem List: 33 yr. old ? ? G3 ?P2 ? ? ?LMP: 06/20/23 EDC: 03/26/24 ?by certain dates? ? ?Blood type:O pos Problem List: 1. Testing: Panorama/and or First Tri screen: ? ?risk NT scan:09/21/23 nl AFP: Low risk for DS. tri 18, open NTD FAS:nl scan Glucose: early ? 28 wk glucose: ? CBC 1st Tri: 12.4/36.9/218? 28 wk. CBC: GBS: Pre eclampsia labs: 1st tri -wnl Vaccinations: Flu: 06/2023 Covid: 06/2023 Tdap:discussed RSV:discussed Education/Services WIC: not eligible Social Supports/Stressors: Living situation: partner Renato, her daughters, 11 and 13 yrs. 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 control: OB Visit Log Initial Weight: 155 lb Date -?-?-?-?-?-?-?-?-?-?-?-?- EGA Weight Gest Week Fundal Ht Present FHR move Efface % Edema BP PrePreg We Weight GTT -?-?-?-?-?-?-?-?-?-?-?-?- Glucose LV Protein Blood Type 10/01/23 -?-?-?-?-?-?-?-?-?-?-?-?- 14w 5d 162 lb 6 oz (+7 lb 6 oz) 1 62 lb 6 oz -?-?-?-?-?-?-?-?-?-?-?-?- 10/16/23 -?-?-?-?-?-?-?-?-?-?-?-?- 16w 6d 165 lb (+10 lb) 15 160 106/68 165 l b -?-?-?-?-?-?-?-?-?-?-?-?- 11/16/23 -?-?-?-?-?-?-?-?-?-?-?-?- 21w 2d 170 lb (+15 lb) 22 150 active 100/60 170 lb -?-?-?-?-?-?-?-?-?-?-?-?- 12/14/23 -?-?-?-?-?-?-?-?-?-?-?-?- 25w 2d 170 lb (+15 lb) 26 ? 150 active 122/80 170 lb -?-?-?-?-?-?-?-?-?-?-?-?- Notes Visit Date: 12/14/23 Last Updated by: Gaby Lopez CNM Patient is here for her visit at 25 weeks and 2 days. She is with her they are doing well. The urine culture done at the previous visit a month ago turned out not to show anything her symptoms went away though this weekend she had a little pink spotting when she wiped [facility] she got evaluated in every way the urine was negative cervix was closed there was no bleeding everything was fine and she was sent home she has had a little bit since the exam but she was told to expect that she has no cramping whatsoever no other symptoms. Records were not there when she went and a discussion took place about the benefits of transferring so that records would be there when she delivers. Discussed the advantages of meeting the care providers that will be involved in her care at delivery ahead of time and there is value to that and that is what they plan to do. Discussed signing for record transfer she still has to decide which practice she will be going to I gave them a list and with some information about the practices and she will make calls and I recommend that when she comes in to do her blood work in about 3 weeks she signed the consent form men and her visit can be any time in 3-4 weeks does not need to be on the same day. We also discussed upcoming RSV vaccine and Tdap vaccine which will probably be in the 3rd trimester and maybe for consideration at [facility] she has planning no more children after this so may want to discuss tubal ligation with the [facility] providers as well when she is fully going there we will continue to see her for regular care until such time as she is transferred.. Visit Date: 11/16/23 Last Updated by: Farnaz Barton CNM Note author: Farnaz Barton CNM. 21.2wk. JENNIFER. Taking PNV, Doing well with no concerns. Good appetite, stays well hydrated. Denies any LOF, VB, abd. pain, she feels like she may be starting to get a urinary tract infection, and also some mild irritation externally. Good FM. She reports having a 3rd girl. Exam completed BV culture obtained, urine sent to lab for culture. Reviewed: FAS nl PTL s/s-LOF/Ctx's/VB, when to seek emergent care. discomforts, self help measures. FMC and when to call for further evaluation. Encouraged a healthy well balanced diet, regular walking/exercise in . Hydrate well, 8-10 glasses of water daily. RTO 4wks. Visit Date: 10/16/23 Last Updated by: Gaby Lopez CNM Patient is being seen for her new OB physical down of the [facility]. Review of the chart shows normal lab work that was done at [facility] including baseline preeclampsia labs. The patient had an elevated heart rate at a dating ultrasound so she was sent for a follow-up ultrasound which was within normal limits and she also then had her nuchal translucency ultrasound at [facility] but it was done at the [facility]. She says she went to the lab following, to get the blood work done but review of the chart, and with assistance of RN reveals no filing that can be found of the results of the 1st trimester screening from 09/21/2023. Therefore the following issues have been discussed today I am sending her to the RNs at the 501 office to fill out the paperwork for the AFP lab work which is a screening for neural tube defects and if the 1st trimester screening lab results have not been located or are abnormal she is also to have I panorama done. There is no computer order for the panorama at this time yet. The patient says she is able to go up to the hospital to pick up truck driver these forms and then go to the lab. Jordyn is continuing to look for the results of the first-trimester screen. Re of the visit patient has been reassured that everything is okay with the baby's heart rate after having had 2 ultrasounds as above we are still trying to locate the results of the first-trimester screen as they do not appear to be in the chart. I did counselor at law her about the possibility of getting AFP screening for neural tube defects she is open to doing what ever is recommended in a . She already has her FA S ultrasound scheduled an ordered. I reviewed that at this point in time we do not have the ability to have this test done down here at the [facility] as there is a form that needs to be filled out by the RNs to accompany paperwork to the lab so she is going to go now to the 501 office and speak with the nurses and have that form filled out and then go to the lab if the results of the 1st trimester screening as above have not yet been located by the time she arrives up there the patient is also to be given put paperwork for a panorama test, as a substitute for the 1st trimester screening. Patient feels she is eating well she is doing well her kids are excited. Her is eager to find out if she is having a boy but she knows that at the very least she will find out at the ultrasound. She does not have any other questions about taking care of herself in this and is fine with delivering at [facility] and coming here for care. Reviewed normal parameters of self-care in and her normal labs thus far with exception of the missing first-trimester screen. Clarification of patient's 1st delivery she does remember having an elevated blood pressure to visit and was recommended to go home and r est and come back again the following Sunday and at that visit her blood pressure was again elevated and she was sent to the birthing center but by then she was already in labor on her own and did not need to be induced and in fact and just at the time she was thinking she might need something to help her for pain it was time for the baby to come so it was a relatively quick labor. 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 LMP 06/20/23 (beverley guerrero) with JOSH 03/26/24 and GA today of 14w5d. US on 08/28/23 at 10w3d and JOSH 03/22/24. , both girls were born at [facility] and both born at term. Pt reports she had elevated BP with her first and was admitted to hospital. Pt is unsure if she had PEC, but baseline PEC labs were ordered. FH as well for maternal grandmother with diabetes. Early glucose was added to labs. Order was placed for FAS in 5 weeks and pt advised this is done at [facility] and she will receive a call re: appt date/time. Brittni is taking PNV. BMI today 29.7. FOB is Renato and he is also the FOB of her first 2 children. This was planned and the family is happy and excited. Pt was given the folder. We discussed danger signs and how to reach the MD television announcer 07/05. Pt is aware she will deliver at [facility] and have US there as well. Of mention was that SHIRA has a brother with autism. First trimester education was reviewed. Pt will schedule her OB PE for next week. All questions were answered to the best of my ability. Pt verbalizes understanding and agrees with plan. Results AMB Urinalysis, Automated UA Leukoctes Carlos/uL Last Edit by Velia Mendez CMA on 12/14/23 11:23 UA Nitrite Last Edit by Velia Mendez CMA on 12/14/23 11:23 UA Urobilinogen 0 mg/dL Last Edit by Velia Mendez CMA on 12/14/23 11:23 UA Protein 30 mg/dL Last Edit by Velia Mendez CMA on 12/14/23 11:23 UA pH 6.0 Last Edit by Velia Mendez CMA on 12/14/23 11:23 UA Blood 0 Corby/uL Last Edit by Velia Mendez CMA on 12/14/23 11:23 UA Specific [place] 1.025 Last Edit by Velia Mendez CMA on 12/14/23 11: 23 UA Ketone Positive Last Edit by Velia Mendez CMA on 12/14/23 11:23 trace Velia Mendez 12/14/23 11:23 UA Bilirubin 0 mg/dL Last Edit by Velia Mendez CMA on 12/14/23 11:23 UA Glucose 0 mg/dL Last Edit by Velia Mendez CMA on 12/14/23 11:23 Results Reviewed Results Reviewed: Name: Brittni Davidson Age/Sex: 33/F : 1990 Unit#: [id number] Attend Dr: Farnaz Barton CNM Re11/16/23 Status: DEP REF Location: [facility] Disch: Specimen: [id number] Collected: 11/16/23-1356 Status: COMP Req#: [id number] Received: 11/16/23-1527 Source: [facility] Sp Desc: Clean Cat Subm Dr: Farnaz Barton CNM Ordered: Urine Culture Procedure Result Verified Urine Culture Final 11/18/23-1024 Report Result 10,000 to 50,000 cfu/ml Mixed bacterial wilda characteristic of urogenital contamination. Coding Level of Care Code [place] Diagnoses Supervision of normal intrauterine in multigravida in second trimester Z34.82 Assessment & Plan Assessment & Plan (1) Supervision of normal intrauterine in multigravida in second trimester: Code(s): Z34.82 - Encounter for supervision of other normal , second trimester Category: Medical Orders: Orders AMB Urinalysis Automated Today Z34 - Encounter for supervision of other normal , second trimester Syphilis Screen 3 Weeks Z34 - Encounter for supervision of other normal , second trimester Glucose 1 Hour PP 50gm Dose 3 Weeks Z34.82 - Encounter for supervision of other normal , second trimester Complete Blood Count no Diff 3 Weeks Z34.82 - Encounter for supervision of other normal , second trimester
== END 2023-12-14 11:44 | disposition home or self-care (01) ==
LOC: HO.HWSM 11:04
PROVIDERS: PCP Internal Medicine; Visit Provider Advanced Practice Midwife
DX: Z34.82 Encounter for supervision of other normal pregnancy, second trimester (principal)
CPT/HCPCS: 25942

== ENCOUNTER → 2023-12-14 11:04 | Outpatient (BNVA) | payer BC, SELFPAY | PROVIDERS: PCP Internal Medicine; Visit Provider Advanced Practice Midwife | DX: Z34.82 Encounter for supervision of other normal pregnancy, second trimester (principal) | CPT/HCPCS: 81003; 99212 ==

== ENCOUNTER 2023-12-27 08:33 | Outpatient (REF) | payer BC, SELFPAY ==
[2023-12-27 10:40] LABS: Hematocrit 37.8 % (37.0-47.0); Hemoglobin 12.9 g/dl (12.0-16.0); Mean Corpuscular HGB Conc 34.1 g/dl (31.0-35.0); Mean Corpuscular Volume 84.9 fL (80.0-98.0); Platelet Count 213 X10*3/uL (160-400); Red Blood Count 4.45 X10*6/uL (4.20-5.50); Red Cell Distribution Width 14.9 % (11.0-16.0); White Blood Count 7.8 X10*3/uL (4.8-10.8)
[2023-12-27 11:30] LABS: Glucose 1 Hour PP 50gm Dose 107 mg/dL (60-140)
[2023-12-27 11:46] LABS: Syphilis Screen Nonreactive (Nonreactive)
== END 2023-12-27 08:34 | disposition home or self-care (01) ==
LOC: HO.LAB 08:33
PROVIDERS: PCP Internal Medicine; Visit Provider Advanced Practice Midwife
DX: Z34.82 Encounter for supervision of other normal pregnancy, second trimester (principal)
CPT/HCPCS: 36415; 82950; 85027; 86780

== ENCOUNTER 2024-01-09 10:41 | Outpatient (AMB) | payer BC, SELFPAY ==
--- NOTE | 2024-01-09 10:45 | A.OFFVISPN_ITS ---
Intake Vital Signs 01/09/24 10:56 Height 5 ft 2 in Weight 175 lb BMI 32.0 BP 120/70 Intake Visit Reasons: JENNIFER Resident Surgeon Required: No Allergies No Known Allergies Allergy (Verified 01/09/24 10:56) Medication List - Last Reconciled 01/09/24 by Gaby Lopez CNM PNV,calcium 66-ljhs-rhhvw acid 27 mg iron- 1 mg ( Vitamins Plus Low Iron) 1 tab PO DAILY Is last menstrual period known: Yes Last menstrual period: 06/20/23 Post menopausal: No Patient : Yes PFSH Medical History Cervical cancer screening Family History Father HTN (hypertension) Blood cholesterol increased compared with prior measurement Mother No problems noted. 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 Date GA/Weeks Outcome Route Wt Inf Gender Labor Arlyn Anesthesia Location Provider Complicate 01/25/10 40 live - full term 6 lb 3 oz Female none [facility] hyper- gestational hypertension 02/02/12 39 live - full term 6 lb 1 oz Female none none Questionnaire History History : 3 Visit JOSH Calculator Estimated Delivery Date Method Current WG Current Estimate 03/26/24 LMP (Certain) 29w 0d Other Estimates 03/22/24 Ultrasound #1 29w 4d Expected Delivery Route/Plan Specific Issues/Plans FH of diabetes (maternal grandmother)--early glucose ordered H/O elevated BPs with first , unsure of diagnosis--will order PEC labs for baseline OB Problem List: 33 yr. old ? ? G3 ?P2 ? ? ?LMP: 06/20/23 EDC: 03/26/24 ?by certain dates? ? ?Blood type:O pos Problem List: 1. Testing: Panorama/and or First Tri screen: ? ?risk NT scan:09/21/23 nl AFP: Low risk for DS. tri 18, open NTD FAS:nl scan Glucose: early ? 28 wk glucose:107 ? CBC 1st Tri: 12.4/36.9/218? 28 wk. CBC: 12.9/36.9/218 GBS: Pre eclampsia labs: 1st tri -wnl Vaccinations: Flu: 06/2023 Covid: 06/2023 Tdap:discussed RSV:discussed Education/Services WIC: not eligible Social Supports/Stressors: Living situation: partner Renato, her daughters, 11 and 13 yrs. 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 control: OB Visit Log Initial Weight: 155 lb Date -?-?-?-?-?-?-?-?-?-?-?-?- EGA Weight Gest Week Fundal Ht Present FHR move Efface % Edema BP PrePreg We Weight GTT -?-?-?-?-?-?-?-?-?-?-?-?- Glucose LV Protein Blood Type 10/01/23 -?-?-?-?-?-?-?-?-?-?-?-?- 14w 5d 162 lb 6 oz (+7 lb 6 oz) 1 62 lb 6 oz -?-?-?-?-?-?-?-?-?-?-?-?- 10/16/23 -?-?-?-?-?-?-?-?-?-?-?-?- 16w 6d 165 lb (+10 lb) 15 160 106/68 165 l b -?-?-?-?-?-?-?-?-?-?-?-?- 11/16/23 -?-?-?-?-?-?-?-?-?-?-?-?- 21w 2d 170 lb (+15 lb) 22 150 active 100/60 170 lb -?-?-?-?-?-?-?-?-?-?-?-?- 12/14/23 -?-?-?-?-?-?-?-?-?-?-?-?- 25w 2d 170 lb (+15 lb) 26 ? 150 active 122/80 170 lb -?-?-?-?-?-?-?-?-?-?-?-?- 01/09/24 -?-?-?-?-?-?-?-?-?--?-?-?- 29w 0d 175 lb (+20 lb) 29 ? 150 active 120/70 175 lb -?-?-?-?-?-?-?-?-?-?-?-?- Notes Visit Date: 01/09/24 Last Updated by: Gaby Lopez CNM Patient is here at the [facility] for her 29 week and 0 day visit. She had her 3rd trimester blood work done 2 weeks ago and it was within normal limits with the hemoglobin hematocrit of 12.9,,36.9 218 platelets and her [id number], The [facility] pharmacy gave her a different type of vitamin however it does not include a list of specific ingredients on the bottle that she could see so I recommend she check with the pharmacist because we could not discern it from the information she had on her phone. She does not need extra iron at this time. She had said she been told that she would get a call from a practice at [facility] and she does know the practice she called after the previous discussion but she never got a call back so she is decided she is just going to continue with her original plan of staying here until she has the baby and just going to the hospital when she is in labor. Reviewed indications that might require or benefit from transfer before delivery but she does not have any of those factors at this time. Visit Date: 12/14/23 Last Updated by: Gaby Lopez CNM Patient is here for her visit at 25 weeks and 2 days. She is with her they are doing well. The urine culture done at the previous visit a month ago turned out not to show anything her symptoms went away though this weekend she had a little pink spotting when she wiped so [facility] she got evaluated in every way the urine was negative cervix was closed there was no bleeding everything was fine and she was sent home she has had a little bit since the exam but she was told to expect that she has no cramping whatsoever no other symptoms. Records were not there when she went and a discussion took place about the benefits of transferring so that records would be there when she delivers. Discussed the advantages of meeting the care providers that will be involved in her care at delivery ahead of time and there is value to that and that is what they plan to do. Discussed signing for record transfer she still has to decide which practice she will be going to I gave them a list and with some information about the practices and she will make calls and I recommend that when she comes in to do her blood work in about 3 weeks she signed the consent form men and her visit can be any time in 3-4 weeks does not need to be on the same day. We also discussed upcoming RSV vaccine and Tdap vaccine which will probably be in the 3rd trimester and maybe for consideration at [facility] she has planning no more children after this so may want to discuss tubal ligation with the [facility] providers as well when she is fully going there we will continue to see her for regular care until such time as she is transferred.. Visit Date: 11/16/23 Last Updated by: Farnaz Barton CNM Note author: Farnaz Barton CNM. 21.2wk. JENNIFER. Taking PNV, Doing well with no concerns. Good appetite, stays well hydrated. Denies any LOF, VB, abd. pain, she feels like she may be starting to get a urinary tract infection, and also some mild irritation externally. Good FM. She reports having a 3rd girl. Exam completed BV culture obtained, urine sent to lab for culture. Reviewed: FAS nl PTL s/s-LOF/Ctx's/VB, when to seek emergent care. discomforts, self help measures. FMC and when to call for further evaluation. Encouraged a healthy well balanced diet, regular walking/exercise in . Hydrate well, 8-10 glasses of water daily. RTO 4wks. Visit Date: 10/16/23 Last Updated by: Gaby Lopez CNM Patient is being seen for her new OB physical down of the [facility]. Review of the chart shows normal lab work that was done at [facility] including baseline preeclampsia labs. The patient had an elevated heart rate at a dating ultrasound so she was sent for a follow-up ultrasound which was within normal limits and she also then had her nuchal translucency ultrasound at [facility] but it was done at the [facility]. She says she went to the lab following, to get the blood work done but review of the chart, and with assistance of RN reveals no filing that can be found of the results of the 1st trimester screening from 09/21/2023. Therefore the following issues have been discussed today I am sending her to the RNs at the [facility] office to fill out the paperwork for the AFP lab work which is a screening for neural tube defects and if the 1st trimester screening lab results have not been located or are abnormal she is also to have I panorama done. There is no computer order for the panorama at this time yet. The patient says she is able to go up to the hospital to pick up driver these forms and then go to the lab. Jordyn is continuing to look for the results of the first-trimester screen. Re of the visit patient has been reassured that everything is okay with the baby's heart rate after having had 2 ultrasounds as above we are still trying to locate the results of the first-trimester screen as they do not appear to be in the chart. I did credit support counselor her about the possibility of getting AFP screening for neural tube defects she is open to doing what ever is recommended in a . She already has her FA S ultrasound scheduled an ordered. I reviewed that at this point in time we do not have the ability to have this test done down here at the [facility] as there is a form that needs to be filled out by the RNs to accompany paperwork to the lab so she is going to go now to the 501 office and speak with the nurses and have that form filled out and then go to the lab if the results of the 1st trimester screening as above have not yet been located by the time she arrives up there the patient is also to be given put paperwork for a panorama test, as a substitute for the 1st trimester screening. Patient feels she is eating well she is doing well her kids are excited. Her is eager to find out if she is having a boy but she knows that at the very least she will find out at the ultrasound. She does not have any other questions about taking care of herself in this and is fine with delivering at [facility] and coming here for care. Reviewed normal par ameters of self-care in and her normal labs thus far with exception of the missing first-trimester screen. Clarification of patient's 1st delivery she does remember having an elevated blood pressure to visit and was recommended to go home and rest and come back again the following Sunday and at that visit her blood pressure was again elevated and she was sent to the birthing center but by then she was already in labor on her own and did not need to be induced and in fact and just at the time she was thinking she might need something to help her for pain it was time for the baby to come so it was a relatively quick labor. 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 LMP 06/20/23 (certain) with JOSH 03/26/24 and GA today of 14w5d. US on 08/28/23 at 10w3d and JOSH 03/22/24. , [place] [facility] both born at [place]. Pt reports she had elevated BP with her first and was admitted to hospital. Pt is unsure if she had PEC, but baseline PEC labs were ordered. FH as well for maternal grandmother with diabetes. Early glucose was added to labs. Order was placed for FAS in 5 weeks and pt advised this is done [place] [facility] and she will receive a call re: appt date/time. Brittni is taking PNV. BMI today 29.7. FOB is Renato and he is also the FOB of her first 2 children. This was planned and the family is happy and excited. Pt was given the folder. We discussed danger signs and how to reach the MD funeral home location manager 07/05. Pt is aware she will deliver at [facility] and [place] there as well. Of mention was that FOMaribell has a brother with autism. First trimester education was reviewed. Pt will schedule her OB PE for next week. All questions were answered to the best of my ability. Pt verbalizes understanding and agrees with plan. Coding Level of Care Code [place] Diagnoses Encounter for supervision of normal in third trimester Z34.93 Assessment & Plan Assessment & Plan (1) Encounter for supervision of normal in third trimester: Code(s): Z34.93 - Encounter for supervision of normal , unspecified, third trimester Category: Medical
[2024-01-09 10:56] VITALS: BP 120/70; BMI 32.0
== END 2024-01-09 11:58 | disposition home or self-care (01) ==
PROVIDERS: PCP Internal Medicine; Visit Provider Advanced Practice Midwife
DX: Z34.93 Encounter for supervision of normal pregnancy, unspecified, third trimester (principal)
CPT/HCPCS: 25942

== ENCOUNTER → 2024-01-09 10:41 | Outpatient (BNVA) | payer BC, SELFPAY | PROVIDERS: PCP Internal Medicine; Visit Provider Advanced Practice Midwife | DX: Z34.93 Encounter for supervision of normal pregnancy, unspecified, third trimester (principal) | CPT/HCPCS: 99212 ==

== ENCOUNTER 2024-01-23 13:22 | Outpatient (AMB) | payer BC, SELFPAY ==
[2024-01-23 13:41] VITALS: BP 122/76; BMI 32.9
--- NOTE | 2024-01-23 13:41 | A.OFFVISPN_ITS ---
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 Maternal Grandmother Diabetes mellitus Maternal Grandfather HTN (hypertension) Paternal Grandfather ETOH abuse Social History Household Members: Significant Other and Children Both parents involved: Yes Caregiver staying overnight: No Housing: House Are you a primary career development associate to a significant other at home: No Do you presently have visiting nurse or other home services: No 75 years or older and lives alone: No Alcohol intake: never Patient Tobacco Use Status: Never used Tobacco Agree to transfusion: Yes service: No Current occupational status: employed Current occupation: [employer] Current occupational exposures/hazards: No Cognitive needs: No Hearing needs: No Vision needs: No Female Reproductive History Menstrual Age of Menarche: 10 History History 3 Elective abortions 0 Para 2 Spontaneous abortions 0 Hx # Term Pregnancies 2 Ectopic pregnancies 0 Hx # Pregnancies 0 Multiple births 0 Past Pregnancies Del. Date GA/Weeks Outcome Route Wt Inf Gender Labor Arlyn Anesthesia Location Provider Complicate 01/25/10 40 live - full term 6 lb 3 oz Female none [facility] pre-eclampsia induced hyper- gestational hypertension 02/02/12 39 live - full term 6 lb 1 oz Female none none Visit JOSH Calculator Estimated Delivery Date Method Current WG Current Estimate 03/26/24 LMP (Certain) 31w 0d Other Estimates 03/22/24 Ultrasound #1 31w 4d Expected Delivery Route/Plan Specific Issues/Plans FH of diabetes (maternal grandmother)--early glucose ordered H/O elevated BPs with first , unsure of diagnosis--will order PEC labs for baseline OB Problem List: 33 yr. old ? ? G3 ?P2 ? ? ?LMP: 06/20/23 EDC: 03/26/24 ?by certain dates? ? ?Blood type:O pos Problem List: 1. Testing: Panorama/and or First Tri screen: ? ?risk NT scan:09/21/23 nl AFP: Low risk for DS. tri 18, open NTD FAS:nl scan Glucose: early ? 28 wk glucose:107 ? CBC 1st Tri: 12.4/36.9/218? 28 wk. CBC: 12.36.218 GBS: Pre eclampsia labs: 1st tri -wnl Vaccinations: Flu: 06/2023 Covid: 06/2023 Tdap:discussed RSV:discussed Education/Services WIC: not eligible Social Supports/Stressors: Living situation: partner Renato, her daughters, 11 and 13 yrs. 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 control: OB Visit Log Initial Weight: 155 lb Date -?-?-?-?-?-?-?-?-?-?-?-?- EGA Weight Gest Week Fundal Ht Present FHR move Efface % Edema BP PrePreg We Weight GTT -?-?-?-?-?-?-?-?-?-?-?-?- Glucose LV Protein Blood Type 10/01/23 -?-?-?-?-?-?-?-?-?-?-?-?- 14w 5d 162 lb 6 oz (+7 lb 6 oz) 1 62 lb 6 oz -?-?-?-?-?-?-?-?-?-?-?-?- 10/16/23 -?-?-?-?-?-?-?-?-?-?-?-?- 16w 6d 165 lb (+10 lb) 15 160 106/68 165 l b -?-?-?-?-?-?-?-?-?-?-?-?- 11/16/23 -?-?-?-?-?-?-?-?-?-?-?-?- 21w 2d 170 lb (+15 lb) 22 150 active 100/60 170 lb -?-?-?-?-?-?-?-?-?-?-?-?- 12/14/23 -?-?-?-?-?-?-?-?-?-?-?-?- 25w 2d 170 lb (+15 lb) 26 ? 150 active 122/80 170 lb -?-?-?-?-?-?-?-?-?-?--?-?- 01/09/24 -?-?-?-?-?-?-?-?-?-?-?-?- 29w 0d 175 lb (+20 lb) 29 ? 150 active 120/70 175 lb -?-?-?-?-?-?-?-?-?-?-?-?- 01/23/24 -?-?-?-?-?-?-?-?-?-?-?-?- 31w 0d 180 lb (+25 lb) 30 ? 140 active 122/76 180 lb -?-?-?-?-?-?-?-?-?-?-?-?- Notes Visit Date: 01/23/24 Last Updated by: Gaby Lopez CNM Patient is here for her visit she has not having any issues other than she is noticing more pedal edema towards the end of the day if she has had a day when she has standing a lot they are swollen today she has finished with her work lead go obligations today. Her children will be both having their birthdays her oldest 1 will be turning 14 in a couple of weeks. Reviewed in this visit her decision not to take the baby aspirin. She did her own research on it and decided that she did not really want to take it. Discussed the recommendations in her case there was no real concern about hypertension in that 1 delivery there was a question and it was repeated and not deemed to be problematic for the rest of her labor. There is iron in her vitamins so she has no need of extra iron. She is planning on using the same IUD that she had after her youngest it worked very well for her for many years she did get regular periods with it. Reviewed the timing of placement of the IUD it normally would not be until 8 weeks when the uterus is well involuted. She does put her feet up whenever she can and does notice a difference in the swelling when she does we will see her in 2 weeks she will call for any problems. Visit Date: 01/09/24 Last Updated by: Gaby Lopez CNM Patient is here at the [facility] for her 29 week and 0 day visit. She had her 3rd trimester blood work done 2 weeks ago and it was within normal limits with the hemoglobin hematocrit of 12.9,,36.9 218 platelets and her [id number], The [facility] pharmacy gave her a different type of vitamin however it does not include a list of specific ingredients on the bottle that she could see so I recommend she check with the pharmacist because we could not discern it from the information she had on her phone. She does not need extra iron at this time. She had said she been told that she would get a call from a practice at [facility] and she does know the practice she called after the previous discussion but she never got a call back so she is decided she is just going to continue with her original plan of staying here until she has the baby and just going to the hospital when she is in labor. Reviewed indications that might require or benefit from transfer before delivery but she does not have any of those factors at this time. Visit Date: 12/14/23 Last Updated by: Gaby Lopez CNM Patient is here for her visit at 25 weeks and 2 days. She is with her they are doing well. The urine culture done at the previous visit a month ago turned out not to show anything her symptoms went away though this weekend she had a little pink spotting when she wiped so she went to [facility] she got evaluated in every way the urine was negative cervix was closed there was no bleeding everything was fine and she was sent home she has had a little bit since the exam but she was told to expect that she has no cramping whatsoever no other symptoms. Records were not there when she went and a discussion took place about the benefits of transferring so that records would be there when she delivers. Discussed the advantages of meeting the care providers that will be involved in her care at delivery ahead of time and there is value to that and that is what they plan to do. Discussed signing for record transfer she still has to decide which practice she will be going to I gave them a list and with some information about the practices and she will make calls and I recommend that when she comes in to do her blood work in about 3 weeks she signed the consent form men and her visit can be any time in 3-4 weeks does not need to be on the same day. We also discussed upcoming RSV vaccine and Tdap vaccine which will probably be in the 3rd trimester and maybe for consideration at [facility] she has planning no more children after this so may want to discuss tubal ligation with the [facility] providers as well when she is fully going there we will continue to see her for regular care until such time as she is transferred.. Visit Date: 11/16/23 Last Updated by: Farnaz Barton CNM Note author: Farnaz Barton CNM. 21.2wk. JUAN ALBERTO. Taking PNV, Doing well with no concerns. Good appetite, stays well hydrated. Denies any LOF, VB, abd. pain, she feels like she may be starting to get a urinary tract infection, and also some mild irritation externally. Good FM. She reports having a 3rd girl. Exam completed BV culture obtained, urine sent to lab for culture. Reviewed: FAS nl PTL s/s-LOF/Ctx's/VB, when to seek emergent care. discomforts, self help measures. FMC and when to call for further evaluation. Encouraged a healthy well balanced diet, regular walking/exercise in . Hydrate well, 8-10 glasses of water daily. RTO 4wks. Visit Date: 10/16/23 Last Updated by: Gaby Lopez CNM Patient is being seen for her new OB physical down of the [facility]. Review of the chart shows normal lab work that was done at [facility] including baseline preeclampsia labs. The patient had an elevated heart rate at a dating ultrasound so she was sent for a follow-up ultrasound which was within normal limits and she also then had her nuchal translucency ultrasound at [facility] but it was done at the [facility]. She says she went to the lab following, to get the blood work done but review of the chart, and with assistance of RN reveals no filing that can be found of the results of the 1st trimester screening from 09/21/2023. Therefore the following issues have been discussed today I am sending her to the RNs at the [facility] office to fill out the paperwork for the AFP lab work which is a screening for neural tube defects and if the 1st trimester screening lab results have not been located or are abnormal she is also to have I panorama done. There is no computer order for the panorama at this time yet. 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 Jordyn is continuing to look for the results of the first-trimester screen. Re of the visit patient has been reassured that everything is okay with the baby's heart rate after having had 2 ultrasounds as above we are still trying to locate the results of the first-trimester screen as they do not appear to be in the chart. I did relationship counselor her about the possibility of getting AFP screening for neural tube defects she is open to doing what ever is recommended in a . She already has her FA S ultrasound scheduled an ordered. I reviewed that at this point in time we do not have the ability to have this test done down here at the [facility] as there is a form that needs to be filled out by the RNs to accompany paperwork to the lab so she is going to go now to the [facility] office and speak with the nurses and have that form filled out and then go to the lab if the results of the 1st trimester screening as above have not yet been located by the time she arrives up there the patient is also to be given put paperwork for a panorama test, as a substitute for the 1st trimester screening. Patient feels she is eating well she is doing well her kids are excited. Her is eager to find out if she is having a boy but she knows that at the very least she will find out at the ultrasound. She does not have any other questions about taking care of herself in this and is fine with delivering at [facility] and coming here for care. Reviewed normal parameters of self-care in and her normal labs thus far with exception of the missing first-trimester screen. Clarification of patient's 1st delivery she does remember having an elevated blood pressure to visit and was recommended to go home and rest and come back again the following Sunday and at that visit her blood pressure was again elevated and she was sent to the birthing center but by then she was already in labor on her own and did not need to be induced and in fact and just at the time she was thinking she might need something to help her for pain it was time for the baby to come so it was a relatively quick labor. 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 LMP 06/20/23 (certain) with JOSH 03/26/24 and GA today of 14w5d. US on 08/28/23 at 10w3d and JOSH 03/22/24. , both girls were born at [facility] and both born at term. Pt reports she had elevated BP with her first and was admitted to hospital. Pt is unsure if she had PEC, but baseline PEC labs were ordered. FH as well for maternal grandmother with diabetes. Early glucose was added to labs. Order was placed for FAS in 5 weeks and pt advised this is done at [facility] and she will receive a call re: appt date/time. Brittni is taking PNV. BMI today 29.7. FOB is Renato and he is also the FOB of her first 2 children. This was planned and the family is happy and excited. Pt was given the folder. We discussed danger signs and how to reach the MD certification officer 07/05. Pt is aware she will deliver at [facility] and have US there as well. Of mention was that FOB has a brother with autism. First trimester education was reviewed. Pt will schedule her OB PE for next week. All questions were answered to the best of my ability. Pt verbalizes understanding and agrees with plan. Results AMB Urinalysis, Automated UA Leukoctes 2 Carlos/uL Last Edit by Velia Mendez, HAL on 01/23/24 14:46 trace Velia Mendez 01/23/24 14:46 UA Nitrite Negative Last Edit by Velia Mendez, CNMT on 01/23/24 14:46 UA Urobilinogen 0 mg/dL Last Edit by Velia Mendez, CNMT on 01/23/24 14:46 UA Protein 0 mg/dL Last Edit by Velia Mendez, CNMT on 01/23/24 14:46 UA pH 6.5 Last Edit by Velia Menedz, CNMT on 01/23/24 14:46 UA Blood 0 Corby/uL Last Edit by Velia Mendez, [facility] on 01/23/24 14:46 UA Specific [place] 1.025 Last Edit by Velia Mendez, [facility] on 01/23/24 14: 46 UA Ketone Negative Last Edit by Velia Mendez, CNMT on 01/23/24 14:46 UA Bilirubin 0 mg/dL Last Edit by Velia Mendez, CNMT on 01/23/24 14:46 UA Glucose 0 mg/dL Last Edit by Velia Mendez, [facility] on 01/23/24 14:46 Coding Level of Care Code [place] Diagnoses Encounter for supervision of normal in third trimester Z34.93 Assessment & Plan Assessment & Plan (1) Encounter for supervision of normal in third trimester: Code(s): Z34.93 - Encounter for supervision of normal , unspecified, third trimester Category: Medical
== END 2024-01-23 15:02 | disposition home or self-care (01) ==
PROVIDERS: PCP Internal Medicine; Visit Provider Advanced Practice Midwife
DX: Z34.93 Encounter for supervision of normal pregnancy, unspecified, third trimester (principal)
CPT/HCPCS: 25942

== ENCOUNTER → 2024-01-23 13:22 | Outpatient (BNVA) | payer BC, SELFPAY | PROVIDERS: PCP Internal Medicine; Visit Provider Advanced Practice Midwife | DX: Z34.93 Encounter for supervision of normal pregnancy, unspecified, third trimester (principal) | CPT/HCPCS: 81003; 99212 ==

== ENCOUNTER 2024-02-08 09:20 | Outpatient (AMB) | payer BC, SELFPAY ==
[2024-02-08 09:28] VITALS: BP 154/92; BMI 33.5
--- NOTE | 2024-02-08 09:28 | A.OFFVISPN_ITS ---
Intake Vital Signs 02/08/24 09:28 Height 5 ft 2 in Weight 183 lb BMI 33.5 BP 154/92 H Intake Visit Reasons: JENNIFER Intake Note: blood pressure is high, also she is asking about a rsv vaccine Charting Clerk Required: No Accompanied by: Spouse Allergies No Known Allergies Allergy (Verified 02/08/24 09:30) Medication List - Last Reconciled 02/08/24 by Gaby Lopez CNM PNV,calcium 46-azpi-xkxnk acid 27 mg iron- 1 mg ( Vitamins Plus Low Iron) 1 tab PO DAILY Is last menstrual period known: Yes Last menstrual period: 06/17/23 Post menopausal: No Patient : Yes PFSH Medical History Cervical cancer screening Family History Father HTN (hypertension) Blood cholesterol increased compared with prior measurement Mother No problems noted. 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 Date GA/Weeks Outcome Route Wt Inf Gender Labor Arlyn Anesthesia Location Provider Complicate 01/25/10 40 live - full term 6 lb 3 oz Female none [facility] pre-eclampsia induced hyper- gestational hypertension 04/20/12 39 live - full term 6 lb 1 oz Female none none Questionnaire History History : 3 Visit JOHS Calculator Estimated Delivery Date Method Current WG Current Estimate 03/26/24 LMP (Certain) 33w 2d Other Estimates 03/22/24 Ultrasound #1 33w 6d Expected Delivery Route/Plan Specific Issues/Plans FH of diabetes (maternal grandmother)--early glucose ordered H/O elevated BPs with first , unsure of diagnosis--will order PEC labs for baseline OB Problem List: 33 yr. old ? ? G3 ?P2 ? ? ?LMP: 06/20/23 EDC: 03/26/24 ?by certain dates? ? ?Blood type:O pos Problem List: 1. Testing: Panorama/and or First Tri screen: ? ?risk NT scan:09/21/23 nl AFP: Low risk for DS. tri 18, open NTD FAS:nl scan Glucose: early ? 28 wk glucose:107 ? CBC 1st Tri: 12.4/36.9/218? 28 wk. CBC: 12.36.9/218 GBS: Pre eclampsia labs: 1st tri -wnl Vaccinations: Flu: 06/2023 Covid: 06/2023 Tdap:discussed RSV:discussed Education/Services WIC: not eligible Social Supports/Stressors: Living situation: partner Renato, her daughters, 11 and 13 yrs. 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 control: OB Visit Log Initial Weight: 155 lb Date -?-?-?-?-?-?-?-?-?-?-?-?- EGA Weight Gest Week Fundal Ht Present FHR move Efface % Edema BP PrePreg We Weight GTT -?-?-?-?-?-?-?-?-?-?-?-?- Glucose LV Protein Blood Type 10/01/23 -?-?-?-?-?-?-?-?-?-?-?-?- 14w 5d 162 lb 6 oz (+7 lb 6 oz) 1 62 lb 6 oz -?-?-?-?-?-?-?-?-?-?-?-?- 10/16/23 -?-?-?-?-?-?-?-?-?-?-?-?- 16w 6d 165 lb (+10 lb) 15 160 106/68 165 l b -?-?-?-?-?-?-?-?-?-?-?-?- 11/16/23 -?-?-?-?-?-?-?-?-?--?-?-?- 21w 2d 170 lb (+15 lb) 22 150 active 100/60 170 lb -?-?-?-?-?-?-?-?-?-?-?-?- 12/14/23 -?-?-?-?-?-?-?-?-?-?-?-?- 25w 2d 170 lb (+15 lb) 26 ? 150 active 122/80 170 lb -?-?-?-?-?-?-?-?-?-?-?-?- 01/09/24 -?-?-?-?-?-?-?-?-?-?-?-?- 29w 0d 175 lb (+20 lb) 29 ? 150 active 120/70 175 lb -?-?-?-?-?-?-?-?-?-?-?-?- 01/23/24 -?-?-?-?-?-?-?-?-?-?-?-?- 31w 0d 180 lb (+25 lb) 30 ? 140 active 122/76 180 lb -?-?-?-?-?-?-?-?-?-?-?-?- 02/08/24 -?-?-?-?-?-?-?-?-?-?-?-?- 33w 2d 183 lb (+28 lb) 32 ?? 140 active 154/92 183 lb -?-?-?-?-?-?-?-?-?-?-?-?- Notes Visit Date: 02/08/24 Last Updated by: Gaby Lopez CNM Patient here with for her 33 week and 2 day visit the [facility]. Today she has elevated high blood pressure at 154/92. Her legs are still swollen and they never get less swollen now her hands face are little bit puffier as well she has no headaches she knew epigastric babies she sensations then thing else going she knows that with this elevated Ramirez I need to send her to to since we had discussed transferring her care earlier in the and she had attempted to transfer but nothing ever happened we will have her sign a records and initiate transfer today as well discussed that 1 where another she is going to need more frequent evaluations and testing and plans may need to be made this were the not need after a delay of review of records the way it would be care here and evaluations there. Patient signing consent form for transfer. Will call [facility] right now and give or and send message to nurse to facilitate transfer. Additionally she is interested in the RSV vaccine and we did discuss it previously. We do not have it available in our practice it any rate. Additionally we reviewed plans for IUD she wants the when she had before she used to get regular periods with it and it worked for about 12 years. 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 Her children will be both having their birthdays her oldest 1 will be turning 14 in a couple of weeks. Reviewed in this visit her decision not to take the baby aspirin. She did her own research on it and decided that she did not really want to take it. Discussed the recommendations in her case there was no real concern about hypertension in that 1 delivery there was a question and it was repeated and not deemed to be problematic for the rest of her labor. There is iron in her vitamins so she has no need of extra iron. She is planning on using the same IUD that she had after her youngest it worked very well for her for many years she did get regular periods with it. Reviewed the timing of placement of the IUD it normally would not be until 8 weeks when the uterus is well involuted. She does put her feet up whenever she can and does notice a difference in the swelling when she does we will see her in 2 weeks she will call for any problems. Visit Date: 01/09/24 Last Updated by: Gaby Lopez CNM Patient is here at the [facility] for her 29 week and 0 day visit. She had her 3rd trimester blood work done 2 weeks ago and it was within normal limits with the hemoglobin hematocrit of 12.9,,36.9 218 platelets and her [id number], The [facility] pharmacy gave her a different type of vitamin however it does not include a list of specific ingredients on the bottle that she could see so I recommend she check with the pharmacist because we could not discern it from the information she had on her phone. She does not need extra iron at this time. She had said she been told that she would get a call from a practice at [facility] and she does know the practice she called after the previous discussion but she never got a call back so she is decided she is just going to continue with her original plan of staying here until she has the baby and just going to the hospital when she is in labor. Reviewed indications that might require or benefit from transfer before delivery but she does not have any of those factors at this time. Visit Date: 12/14/23 Last Updated by: Gaby Lopez CNM Patient is here for her visit at 25 weeks and 2 days. She is with her they are doing well. The urine culture done at the previous visit a month ago turned out not to show anything her symptoms went away though this weekend she had a little pink spotting when she wiped so [facility] she got evaluated in every way the urine was negative cervix was closed there was no bleeding everything was fine and she was sent home she has had a little bit since the exam but she was told to expect that she has no cramping whatsoever no other symptoms. Records were not there when she went and a discussion took place about the benefits of transferring so that records would be there when she delivers. Discussed the advantages of meeting the care providers that will be involved in her care at delivery ahead of time and there is value to that and that is what they plan to do. Discussed signing for record transfer she still has to decide which practice she will be going to I gave them a list and with some information about the practices and she will make calls and I recommend that when she comes in to do her blood work in about 3 weeks she signed the consent form men and her visit can be any time in 3-4 weeks does not need to be on the same day. We also discussed upcoming RSV vaccine and Tdap vaccine which will probably be in the 3rd trimester and maybe for consideration at [facility] she has planning no more children after this so may want to discuss tubal ligation with the [facility] providers as well when she is fully going there we will continue to see her for regular care until such time as she is transferred.. Visit Date: 11/16/23 Last Updated by: Farnaz Barton CNM Note author: Farnaz Barton CNM. 21.2wk. JENNIFER. Taking PNV, Doing well with no concerns. Good appetite, stays well hydrated. Denies any LOF, VB, abd. pain, she feels like she may be starting to get a urinary tract infection, and also some mild irritation externally. Good FM. She reports having a 3rd girl. Exam completed BV culture obtained, urine sent to lab for culture. Reviewed: FAS nl PTL s/s-LOF/Ctx's/VB, when to seek emergent care. discomforts, self help measures. FMC and when to call for further evaluation. Encouraged a healthy well balanced diet, regular walking/exercise in . Hydrate well, 8-10 glasses of water daily. RTO 4wks. Visit Date: 10/16/23 Last Updated by: Gaby Lopez CNM Patient is being seen for her new OB physical down of the [facility] office. Review of the chart shows normal lab work that was done at [facility] including baseline preeclampsia labs. The patient had an elevated heart rate at a dating ultrasound so she was sent for a follow-up ultrasound which was within normal limits and she also then had her nuchal translucency ultrasound at [facility] but it was done at the [facility]. She says she went to the lab following, to get the blood work done but review of the chart, and with assistance of RN reveals no filing that can be found of the results of the 1st trimester screening from 09/21/2023. Therefore the following issues have been discussed today I am sending her to the RNs at the [facility] office to fill out the paperwork for the AFP lab work which is a screening for neural tube defects and if the 1st trimester screening lab results have not been located or are abnormal she is also to have I panorama done. There is no computer order for the panorama at this time yet. The patient says she is able to go up to the hospital to pickle pumper these forms and then go to the lab. Jordyn is continuing to look for the results of the first-trimester screen. Re of the visit patient has been reassured that everything is okay with the baby's heart rate after having had 2 ultrasounds as above we are still trying to locate the results of the first-trimester screen as they do not appear to be in the chart. I did marriage and family counselor her about the possibility of getting AFP screening for neural tube defects she is open to doing what ever is recommended in a . She already has her FA S ultrasound scheduled an ordered. I reviewed that at this point in time we do not have the ability to have this test done down here at the [facility] as there is a form that needs to be filled out by the RNs to accompany paperwork to the lab so she is going to go now to the [facility] office and speak with the nurses and have that form filled out and then go to the lab if the results of the 1st trimester screening as above have not yet been located by the time she arrives up there the patient is also to be given put paperwork for a panorama test, as a substitute for the 1st trimester screening. Patient feels she is eating well she is doing well her kids are excited. Her is eager to find out if she is having a boy but she knows that at the very least she will find out at the ultrasound. She does not have any other questions about taking care of herself in this and is fine with delivering at [facility] and coming here for care. Reviewed normal parameters of self-care in and her normal labs thus far with exception of the missing first-trimester screen. Clarification of patient's 1st delivery she does remember having an elevated blood pressure to visit and was recommended to go home and rest and come back again the following Sunday and at that visit her blood pressure was again elevated and she was sent to the birthing center but by then she was already in labor on her own and did not need to be induced and in fact and just at the time she was thinking she might need something to help her for pain it was time for the baby to come so it was a relatively quick labor. Visit Date: 10/01/23 Last Updated by: Sofy Li Otto Brittni is a pleasant 33 year old here for fur matcher visit. LMP 06/20/23 (certain) with JOSH 03/26/24 and GA today of 14w5d. US on 08/28/23 at 10w3d and JOSH 03/22/24. , both girls were born at [facility] and both born at term. Pt reports she had elevated BP with her first and was admitted to hospital. Pt is unsure if she had PEC, but baseline PEC labs were ordered. FH as well for maternal grandmother with diabetes. Early glucose was added to labs. Order was placed for FAS in 5 weeks and pt advised this is done at [facility] and she will receive a call re: appt date/time. Brittni is taking PNV. BMI today 29.7. FOB is Renato and he is also the FOB of her first 2 children. This was planned and the family is happy and excited. Pt was given the folder. We discussed danger signs and how to reach the MD internal controls consultant 07/05. Pt is aware she will deliver at [facility] and have US there as well. Of mention was that SHIRA has a brother with autism. First trimester education was reviewed. Pt will schedule her OB PE for next week. All questions were answered to the best of my ability. Pt verbalizes understanding and agrees with plan. Results AMB Urinalysis, Automated UA Leukoctes 0 Carlos/uL Last Edit by Aidyn Brenton, RMA on 02/08/24 09:42 UA Nitrite Negative Last Edit by Judy Farris, RMA on 02/08/24 09:42 UA Urobilinogen 0 mg/dL Last Edit by Judy Farris, RMA on 02/08/24 09:42 UA Protein 300 mg/dL Last Edit by Judy Farris RMA on 02/08/24 09:42 UA pH 6 Last Edit by Judy Farris, RMA on 02/08/24 09:42 UA Blood 1 Corby/uL Last Edit by Judy Farris, RMA on 02/08/24 09:42 UA Specific [place] 1.030 Last Edit by Judy Farris A on 02/08/24 09: 42 UA Ketone Negative Last Edit by Judy Farris, RMA on 02/08/24 09:42 UA Bilirubin 0 mg/dL Last Edit by Judy Farris RMA on 02/08/24 09:42 UA Glucose 0 mg/dL Last Edit by Judy Farris A on 02/08/24 09:42 Coding Level of Care Code [place] Diagnoses Encounter for supervision of normal in third trimester Z34.93 Elevated blood pressure affecting in third trimester, antepartum O16.3 Assessment & Plan Assessment & Plan (1) Encounter for supervision of normal in third trimester: Code(s): Z34.93 - Encounter for supervision of normal , unspecified, third trimester Category: Medical (2) Elevated blood pressure affecting in third trimester, antepartum: Code(s): O16.3 - Unspecified maternal hypertension, third trimester Category: Medical
== END 2024-02-08 10:39 | disposition home or self-care (01) ==
PROVIDERS: PCP Internal Medicine; Visit Provider Advanced Practice Midwife
DX: Z34.93 Encounter for supervision of normal pregnancy, unspecified, third trimester (principal); O16.3 Unspecified maternal hypertension, third trimester
CPT/HCPCS: 25942; 59426

== ENCOUNTER → 2024-02-08 09:20 | Outpatient (BNVA) | payer BC, SELFPAY | PROVIDERS: PCP Internal Medicine; Visit Provider Advanced Practice Midwife | DX: O16.3 Unspecified maternal hypertension, third trimester (principal); Z3A.33 33 weeks gestation of pregnancy | CPT/HCPCS: 99212 ==